=== PATIENT | female | born 1945 | race Caucasian/White ===

== ENCOUNTER 2016-10-09 11:56 | Emergency (ER) | payer MEDICAID, MEDICARE ==
[~2016-10-09 11:56] MED LIST: ASPI81TA85 PO; BENA25CA2 PO; CHLO25TA PO; DOXY150C PO; FLAG500T PO; HYDR-3713 PO; LISI-538 PO; LISI10TA4 PO; LORT5TAB PO; NICO21DI5 TD; NITR4TASL SL; NORCOTAB PO; NORV5TAB PO; TYLE167L PO; ZOLO50TA PO
[2016-10-09] MEDS ORDERED: ASPIRIN 81 MG CHEW TABLET As Ordered ONE (13:15)
[2016-10-09] MEDS ORDERED: ONDANSETRON 4MG/2ML VIAL (J2405) As Ordered ONE (13:23)
[2016-10-09] MEDS ORDERED: MORPHINE 4 MG/ML 1ML SYRINGE As Ordered ONE (13:23)
[2016-10-09 13:25] LABS: BASO % 0.5 % (0.0-1.0); EOS # 0.2 K/mm3 (0.0-0.50); EOS % 2.4 % (0.0-3.0); LARGE UNSTAINED CELL # 0.1 K/mm3 (0.0-0.4); LARGE UNSTAINED CELL % 1.3 % (0.0-4.0); LYMPH # 2.4 K/mm3 (1.5-4.5); LYMPH % 25.6 % (24.0-44.0); MEAN CORPUSCULAR HEMOGLOBIN 31.5 pg (27.0-33.0); MEAN CORPUSCULAR HGB CONC 33.1 g/dl (32.0-36.5); MONO # 0.5 K/mm3 (0.0-0.8); MONO % 5.1 % (0.0-5.0); NEUTROPHILS # 5.9 K/mm3 (1.8-7.7); PLATELET COUNT, AUTOMATED 227 k/mm3 (150-450); RED CELL DISTRIBUTION WIDTH 13.1 % (11.5-14.5)
[2016-10-09 13:43] LABS: INR 1.02
[2016-10-09 13:51] LABS: ANION GAP 4 MEQ/L (8-16); BLOOD UREA NITROGEN 16 MG/DL (7-18); CARBON DIOXIDE LEVEL 27 MEQ/L (21-32); CHLORIDE LEVEL 108 MEQ/L (98-107); CREATININE FOR GFR 0.86 MG/DL (0.55-1.02); GLOMERULAR FILTRATION RATE > 60.0 (>45); GLUCOSE, FASTING 84 MG/DL (80-110); POTASSIUM SERUM 4.3 MEQ/L (3.5-5.1); SODIUM LEVEL 139 MEQ/L (136-145)
--- NOTE | 2016-10-09 13:51 | REP ---
Portable chest a single AP view: Comparison is the PA and lateral chest dated 12/15 2015 There is chronic parenchymal scarring in the costophrenic angles bilaterally. There are no acute infiltrates or effusions. Lung quijano otherwise clear. Cardiac size is upper normal. The klaus, mediastinum, and bony thorax are unremarkable. Impression: There are no acute cardiopulmonary changes. There is chronic scarring in the costophrenic angles bilaterally. Signed by Baltazar Doyle MD 10/09/2016 01:42 P
--- NOTE | 2016-10-09 15:25 | EDDOCDS ---
Physician Documentation [facility] Name: Tish Gold Age: 71 yrs Sex: Female : 1945 Arrival Date: 10/09/2016 Time: 11:56 Bed 12 Private MD: Justo Nieto Disposition: 10/09/16 14:29 Discharged to Home/Self Care. Impression: Chest pain, unspecified. - Condition is Stable. - Discharge Instructions: Nonspecific Chest Pain. - Medication Reconciliation, Local Pharmacy Hours form. - Follow up: Justo Nieto MD; When: Call to arrange an appointment; Reason: Continuance of care. - Problem is new. - Symptoms have improved. Historical: - Allergies: PENICILLINS; Avelox; BUSPIRONE; Clarithromycin; Keflex; Mobic; moxifloxacin; nicardipine; TRIMETHOPRIM; SULFA (SULFONAMIDES); CEPHALOSPORINS; Minocycline; Doxycycline; - Home Meds: 1. aspirin 81 mg Oral tab 1 tab once daily 2. lisinopril 10 mg Oral tab 1 tab once daily 3. hydrocodone-acetaminophen 10-325 mg Oral tab 4. Sertraline 50 mg 5. Nitrostat 0.4 mg SL subl - PMHx: Chronic Back pain; Heart Disease; - PSHx: Appendectomy; Hysterectomy; - Social history: Smoking status: Patient uses tobacco products, current every day smoker. No barriers to communication noted, The patient speaks fluent Irish, Speaks appropriately for age. - Family history: Not pertinent. - : The pt / caregiver states he / she is not on anticoagulants. Home medication list is obtained from the patient. - Exposure Risk Screening:: None identified. Vital Signs: 10/09 11:58 BP 122 / 79; Pulse 65; Resp 18; Temp 96.9(O); Pulse Ox 98% on R/A; Weight 54.43 kg / ct3 120 lbs (R); Height 5 ft. 0 in. (152.40 cm) (R); Pain 9/10; 12:07 BP 132 / 77 (auto/); jc4 12:09 Pulse 58 MON; Pulse Ox 97% ; jc4 14:06 Pain 0/10; ja5 15:05 BP 112 / 76 (auto/); jc4 15:06 Pulse 54 MON; jc4 15:14 BP 112 / 76; Pulse 52; Resp 16; Temp 97.3(O); Pulse Ox 98% on R/A; Pain 0/10; ja5 11:58 Body Mass Index 23.44 (54.43 kg, 152.40 cm) ct3 MDM: 12:04 ECG WITH READING ER PHYS+CARDIAG ordered. EDMS 12:53 Aspirin Chewable Tablet 324 mg PO once ordered. fg 12:53 Master At Arms/Pulse Ox/q 30 min VS ordered. fg 12:53 IV Saline Lock ordered. fg 12:53 Rhythm Strip to chart ordered. fg 12:53 Undress patient appropriately for examination ordered. fg 12:54 B-Type Natiuretic Peptide Ordered. EDMS 12:54 Basic Metabolic Profile Ordered. EDMS 12:54 CBC with Diff Ordered. EDMS 12:54 Cardiac Injury Profile Ordered. EDMS 12:54 Prothrombin Time Profile\E\INR Ordered. EDMS 12:54 Troponin Ordered. EDMS 12:55 portable chest Ordered. EDMS 13:20 morphine 4 mg IVP once ordered. fg 13:22 Ondansetron 4 mg IVP once ordered. fg Administered Medications: 13:18 Drug: Aspirin 324 mg [aspirin 81 mg chewable tablet (4 tabs)] Route: PO; ja5 13:33 Drug: morphine 4 mg [morphine 4 mg/mL intravenous cartridge (1 mL)] Route: IVP; Site: ja5 right antecubital; 14:06 Follow up: Pain 0/10 Adult ja5 13:33 Drug: Ondansetron 4 mg [ondansetron HCl 2 mg/mL intravenous solution (2 mL)] Route: ja5 IVP; Site: right antecubital; Signatures: Dispatcher [employer] EDFrancy Harding,RN RN kr3 Ivelisse Hardwick RN RN jc4 Meseret Abbott MD MD Jessica Chow RN RN deanna5 MTDD
--- NOTE | 2016-10-09 15:25 | EDDOCDS ---
Nurse's Notes [facility] Name: Tish Gold Age: 71 yrs Sex: Female : 1945 Arrival Date: 10/09/2016 Time: 11:56 Bed 12 Private MD: Justo Nieto Diagnosis: Chest pain, unspecified Presentation: 10/09 12:03 Presenting complaint: Patient states: chest pain began last night .reports leaned over kr3 sofa and felt a pop in center of chest. Vicodan is not reliving pain. 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 Adult Sepsis Screening: The patient does not have new or worsening altered mentation. Patient's respiratory rate is less than 22. Systolic blood pressure is greater than 100. Patient has a qSOFA score of 0- Negative Sepsis Screen. Suicide/Homicide risk assessment- the patient denies having any suicidal and/or homicidal ideations and does not present with any other emotional, behavioral or mental health complaints. Status: Patient is not a community service coordinator or dependent. Transition of care: patient was not received from another setting of care. 12:03 Acuity: SHONA Level 3 kr3 12:03 Method Of Arrival: Wheelchair kr3 12:13 Red Flag criteria, patient assessed and taken directly to a bed. kr3 Triage Assessment: 12:12 General: Appears in no apparent distress, comfortable, Behavior is cooperative. Pain: kr3 Location: mid-sternal area. The patient is triaged at the bedside. See Assessment in Nurses Notes section of ED record. Cardiovascular: Chest pain is described as mild, radiates Does not radiate. episodes are continuous began last night. Respiratory: Respiratory effort is even, unlabored. Derm: Skin is normal. Historical: - Allergies: PENICILLINS; Avelox; BUSPIRONE; Clarithromycin; Keflex; Mobic; moxifloxacin; nicardipine; TRIMETHOPRIM; SULFA (SULFONAMIDES); CEPHALOSPORINS; Minocycline; Doxycycline; - Home Meds: 1. aspirin 81 mg Oral tab 1 tab once daily 2. lisinopril 10 mg Oral tab 1 tab once daily 3. hydrocodone-acetaminophen 10-325 mg Oral tab 4. Sertraline 50 mg 5. Nitrostat 0.4 mg SL subl - PMHx: Chronic Back pain; Heart Disease; - PSHx: Appendectomy; Hysterectomy; - Social history: Smoking status: Patient uses tobacco products, current every day smoker. No barriers to communication noted, The patient speaks fluent Mongolian, Speaks appropriately for age. - Family history: Not pertinent. - : The pt / caregiver states he / she is not on anticoagulants. Home medication list is obtained from the patient. - Exposure Risk Screening:: None identified. Screenin:14 Screening information is obtained from the patient. Fall risk: No risks identified. ja5 Assistance ADL's: requires no assistance with activities of daily living. Abuse/DV Screen: The patient / caregiver reports he/she is: not in a situation that causes fear, pain or injury. Nutritional screening: On no prescribed diet. Advance Directives: Currently, there is a health care proxy, Karla Gallegos, daughter. There is an active Power of Park Interpretive Ranger, Karla Gallegos, daughter. home support is adequate. Assessment: 12:11 General: Appears uncomfortable, Behavior is appropriate for age, cooperative. Pain: ja5 Location: chest Pain currently is 9 out of 10 on a pain scale. Neurological: Level of Consciousness is awake, alert, Oriented to person, place, time. Cardiovascular: Capillary refill < 3 seconds Heart tones S1 S2 present Rhythm is sinus rhythm No ectopy. Chest pain began Last night after bending over the couch and hearing a pop. Respiratory: Airway is patent Respiratory effort is even, unlabored, Respiratory pattern is regular, symmetrical, Breath sounds are clear bilaterally. Derm: Skin is pink, warm & dry. 13:20 Reassessment: Patient appears in no apparent distress at this time. jc4 15:15 General: Appears in no apparent distress, Behavior is appropriate for age, cooperative. ja5 Pain: Denies pain. Neurological: Level of Consciousness is awake, alert, Oriented to person, place, time. Cardiovascular: Capillary refill < 3 seconds Rhythm is sinus bradycardia No ectopy. Respiratory: Airway is patent Respiratory effort is even, unlabored, Respiratory pattern is regular, symmetrical. Derm: Skin is pink, warm & dry. 15:15 General: Patient is no longer having pain to her chest and states that she is "feeling ja5 better.". Vital Signs: 11:58 BP 122 / 79; Pulse 65; Resp 18; Temp 96.9(O); Pulse Ox 98% on R/A; Weight 54.43 kg (R); ct3 Height 5 ft. 0 in. (152.40 cm) (R); Pain 9/10; 12:07 BP 132 / 77 (auto/); jc4 12:09 Pulse 58 MON; Pulse Ox 97% ; jc4 14:06 Pain 0/10; ja5 15:05 BP 112 / 76 (auto/); jc4 15:06 Pulse 54 MON; jc4 15:14 BP 112 / 76; Pulse 52; Resp 16; Temp 97.3(O); Pulse Ox 98% on R/A; Pain 0/10; ja5 11:58 Body Mass Index 23.44 (54.43 kg, 152.40 cm) ct3 Vitals: 11:58 Log In Time: October 09, 2016 at 11:57. RN notified that patient meets Red Flag ct3 criteria. ED Course: 11:57 Patient visited by Johanna Wilkins PCA. ct3 11:57 Patient moved to Waiting ct3 11:58 Justo Nieto MD is Private Physician. ct3 12:01 Ivelisse Hardwick RN is Primary Nurse. ct3 12:01 Jessica Chow RN is Primary Nurse. ct3 12:01 Patient moved to 12 ct3 12:05 Triage Initiated kr3 12:20 The patient / caregiver is instructed regarding the plan of care and ED course. ja5 12:20 classroom monitor on. Pulse ox on. NIBP on. ja5 12:53 Meseret Abbott MD is Attending Physician. fg 12:53 Patient visited by Meseret Abbott MD. fg 13:15 B-Type Natiuretic Peptide Sent. jc4 13:15 Basic Metabolic Profile Sent. jc4 13:15 CBC with Diff Sent. jc4 13:15 Cardiac Injury Profile Sent. jc4 13:15 Prothrombin Time Profile\\E\\INR Sent. jc4 13:15 Troponin Sent. jc4 13:16 Inserted saline lock: 20 gauge in right antecubital area The patient tolerated the jc4 procedure well. 13:53 portable chest Returned. EDMS 14:06 Patient visited by Jessica Chow RN. ja5 14:28 Justo Nieto MD is Referral Physician. fg 15:16 Discontinued lock intact, bleeding controlled, pressure dressing applied, No ja5 redness/swelling at site. No procedures done that require assistance. Administered Medications: 13:18 Drug: Aspirin 324 mg [aspirin 81 mg chewable tablet (4 tabs)] Route: PO; [facility] 13:33 Drug: morphine 4 mg [morphine 4 mg/mL intravenous cartridge (1 mL)] Route: IVP; Site: [facility] right antecubital; 14:06 Follow up: Pain 0/10 Adult [facility] 13:33 Drug: Ondansetron 4 mg [ondansetron HCl 2 mg/mL intravenous solution (2 mL)] Route: ja IVP; Site: right antecubital; Order Results: Lab Order: B-Type Natiuretic Peptide; SPEC'M 10/09/16 13:13 Test: BRAIN NATRIURETIC PEPTIDE; Value: 17.8; Range: <100; Units: PG/ML; Status: F Lab Order: Basic Metabolic Profile; SPEC' 10/09/16 13:13 Test: GLUCOSE, FASTING; Value: 84; Range: 80-110; Units: MG/DL; Status: F Test: BLOOD UREA NITROGEN; Value: 16; Range: 7-18; Units: MG/DL; Status: F Test: CREATININE FOR GFR; Value: 0.86; Range: 0.55-1.02; Units: MG/DL; Status: F Test: GLOMERULAR FILTRATION RATE; Value: > 60.0; Range: >45; Status: F Test: SODIUM LEVEL; Value: 139; Range: 136-145; Units: MEQ/L; Status: F Test: POTASSIUM SERUM; Value: 4.3; Range: 3.5-5.1; Units: MEQ/L; Status: F Test: CHLORIDE LEVEL; Value: 108; Range: 98-107; Abnormal: Above high normal; Units: MEQ/L; Status: F Test: CARBON DIOXIDE LEVEL; Value: 27; Range: 21-32; Units: MEQ/L; Status: F Test: ANION GAP; Value: 4; Range: 8-16; Abnormal: Below low normal; Units: MEQ/L; Status: F Test: CALCIUM LEVEL; Value: 9.0; Range: 8.8-10.2; Units: MG/DL; Status: F Test Note: ; Units are mL/min/1.73 m2 Chronic Kidney Disease Staging per NKF: Stage I & II GFR >=60 Normal to Mildly Decreased Stage III GFR 30-59 Moderately Decreased Stage IV GFR 15-29 Severely Decreased Stage V GFR <15 Very Little GFR Left ESRD GFR <15 on DEPUTY CHIEF MAGISTRATE Lab Order: CBC with Diff; SPEC'M 10/09/16 13:13 Test: WHITE BLOOD COUNT; Value: 9.0; Range: 4.0-10.0; Units: K/mm3; Status: F Test: RED BLOOD COUNT; Value: 4.66; Range: 4.00-5.40; Units: M/mm3; Status: F Test: HEMOGLOBIN; Value: 14.7; Range: 12.0-16.0; Units: g/dl; Status: F Test: HEMATOCRIT; Value: 44.2; Range: 36.0-47.0; Units: %; Status: F Test: MEAN CORPUSCULAR VOLUME; Value: 95.0; Range: 80.0-96.0; Units: fl; Status: F Test: MEAN CORPUSCULAR HEMOGLOBIN; Value: 31.5; Range: 27.0-33.0; Units: pg; Status: F Test: MEAN CORPUSCULAR HGB CONC; Value: 33.1; Range: 32.0-36.5; Units: g/dl; Status: F Test: RED CELL DISTRIBUTION WIDTH; Value: 13.1; Range: 11.5-14.5; Units: %; Status: F Test: PLATELET COUNT, AUTOMATED; Value: 227; Range: 150-450; Units: k/mm3; Status: F Test: NEUTROPHILS %; Value: 65.0; Range: 36.0-66.0; Units: %; Status: F Test: LYMPH %; Value: 25.6; Range: 24.0-44.0; Units: %; Status: F Test: MONO %; Value: 5.1; Range: 0.0-5.0; Abnormal: Above high normal; Units: %; Status: F Test: EOS %; Value: 2.4; Range: 0.0-3.0; Units: %; Status: F Test: BASO %; Value: 0.5; Range: 0.0-1.0; Units: %; Status: F Test: LARGE UNSTAINED CELL %; Value: 1.3; Range: 0.0-4.0; Units: %; Status: F Test: NEUTROPHILS #; Value: 5.9; Range: 1.8-7.7; Units: K/mm3; Status: F Test: LYMPH #; Value: 2.4; Range: 1.5-4.5; Units: K/mm3; Status: F Test: MONO #; Value: 0.5; Range: 0.0-0.8; Units: K/mm3; Status: F Test: EOS #; Value: 0.2; Range: 0.0-0.50; Units: K/mm3; Status: F Test: BASO #; Value: 0.0; Range: 0.0-0.2; Units: K/mm3; Status: F Test: LARGE UNSTAINED CELL #; Value: 0.1; Range: 0.0-0.4; Units: K/mm3; Status: F Lab Order: Cardiac Injury Profile; [facility] 10/09/16 13:13 Test: CPK CREATINE PHOSPHOKINASE; Value: 75; Range: 26-192; Units: U/L; Status: F Test: CK-MB VALUE MASS; Value: 1.0; Range: 0.0-3.6; Units: NG/ML; Status: F Test: MB/CK RELATIVE INDEX; Value: 1.33; Range: < OR =4; Status: F Test Note: ; DIAGNOSIS CRITERIA MMB ng/ml Relative Index (RI) NON-AMI < or = 5 N/A GAYTAN ZONE > 5 < or = 4 AMI > 5 > 4 Lab Order: Prothrombin Time Profile\\E\\INR; [facility] 10/09/16 13:13 Test: PROTHROMBIN TIME; Value: 13.5; Range: 12.3-14.5; Units: SECONDS; Status: F Test: INR; Value: 1.02; Status: F Test Note: ; THERAPUTIC HUMAN INR VALUES INDICATIONS NORMAL RANGES PROPHYLAXIS/TREATMENT OF: VENOUS THROMBOSIS 2.0-3.0 PULMONARY EMBOLISM 2.0-3.0 PREVENTION OF SYSTEMIC EMBOLISM FROM: TISSUE HEART VALVES 2.0-3.0 ACUTE MYOCARDIAL INFARCTION 2.0-3.0 VALVULAR HEART DISEASE 2.0-3.0 ATRIAL FIBRILLATION 2.0-3.0 MECHANICAL VALVES(HIGH RISK) 2.5-3.5 RECURRENT MYOCARDIAL INFARCTION 2.5-3.5 Lab Order: Troponin; [facility] 10/09/16 13:13 Test: TROPONIN I; Value: < 0.02; Range: < 0.10; Units: NG/ML; Status: F Test Note: ; Troponin I Reference Interval for Siemens [employer] LOCI: 99th Percentile= 0.00-0.045 ng/ml Risk Stratification: <= 0.10 ng/ml Decreased Risk for Adverse Clinical Events. 0.10-1.50 ng/ml Increased Risk for Adverse Clinical Events. Evaluation of additional criterion and/or repeat testing in 2-6 hours is suggested to rule out myocardial damage. >= 1.50 ng/ml Indicative of Myocardial Injury. Radiology Order: portable chest Test: portable chest REASON FOR EXAMINATION: Chest Pain; Portable chest a single AP view:; ; Comparison is the PA and lateral chest dated 12/15 2015; ; There is chronic parenchymal scarring in the costophrenic angles bilaterally.; ; There are no acute infiltrates or effusions. Lung quijano otherwise clear.; ; Cardiac size is upper normal. The klaus, mediastinum, and bony thorax are; unremarkable.; ; Impression:; ; There are no acute cardiopulmonary changes. There is chronic scarring in the; costophrenic angles bilaterally.; ; ; Signed by; Baltazar Doyle MD 10/09/2016 01:42 P; Outcome: 14:29 Discharge ordered by Provider. fg 15:17 Discharge Assessment: Patient awake and alert. Oriented to person, place and time. ja5 patient administered narcotics - yes. Pt provided with safe discharge. The following High Risk Discharge criteria are identified: None. Discharged to home ambulatory, with significant other. Condition: stable. Discharge instructions given to patient, Instructed on discharge instructions, follow up and referral plans. Demonstrated understanding of instructions, Patient understands that she shouldn't drive home after receiving IV narcotics. She states that her will be driving her home. No special radiology studies were completed. Property :Personal belongings accompany Pt. 15:24 Patient left the ED. jc4 Signatures: Dispatcher [employer] EDFrancy Harding,RN RN kr3 Ivelisse Hardwick RN RN jc4 Johanna Wilkins, CRANE HELPER CRANE HELPER ct3 Meseret Abbott MD MD fg Anderson, Jessica, RN RN ja5 MTDD
--- NOTE | 2016-10-10 08:30 | ECGEPIP ---
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
--- NOTE | 2016-10-11 16:25 | EDDOCDS ---
Physician Documentation [facility] Name: Tish Gold Age: 71 yrs Sex: Female : 1945 Arrival Date: 10/09/2016 Time: 11:56 Bed 12 Private MD: Justo Nieto Disposition: 10/09/16 14:29 Discharged to Home/Self Care. Impression: Chest pain, unspecified. - Condition is Stable. - Discharge Instructions: Nonspecific Chest Pain. - Medication Reconciliation, Local Pharmacy Hours form. - Follow up: Justo Nieto MD; When: Call to arrange an appointment; Reason: Continuance of care. - Problem is new. - Symptoms have improved. Historical: - Allergies: PENICILLINS; Avelox; BUSPIRONE; Clarithromycin; Keflex; Mobic; moxifloxacin; nicardipine; TRIMETHOPRIM; SULFA (SULFONAMIDES); CEPHALOSPORINS; Minocycline; Doxycycline; - Home Meds: 1. aspirin 81 mg Oral tab 1 tab once daily 2. lisinopril 10 mg Oral tab 1 tab once daily 3. hydrocodone-acetaminophen 10-325 mg Oral tab 4. Sertraline 50 mg 5. Nitrostat 0.4 mg SL subl - PMHx: Chronic Back pain; Heart Disease; - PSHx: Appendectomy; Hysterectomy; - Social history: Smoking status: Patient uses tobacco products, current every day smoker. No barriers to communication noted, The patient speaks fluent Belarusian, Speaks appropriately for age. - Family history: Not pertinent. - : The pt / caregiver states he / she is not on anticoagulants. Home medication list is obtained from the patient. - Exposure Risk Screening:: None identified. Vital Signs: 10/09 11:58 BP 122 / 79; Pulse 65; Resp 18; Temp 96.9(O); Pulse Ox 98% on R/A; Weight 54.43 kg / ct3 120 lbs (R); Height 5 ft. 0 in. (152.40 cm) (R); Pain 9/10; 12:07 BP 132 / 77 (auto/); jc4 12:09 Pulse 58 MON; Pulse Ox 97% ; jc4 14:06 Pain 0/10; ja5 15:05 BP 112 / 76 (auto/); jc4 15:06 Pulse 54 MON; jc4 15:14 BP 112 / 76; Pulse 52; Resp 16; Temp 97.3(O); Pulse Ox 98% on R/A; Pain 0/10; ja5 11:58 Body Mass Index 23.44 (54.43 kg, 152.40 cm) ct3 MDM: 12:04 ECG WITH READING ER PHYS+CARDIAG ordered. EDMS 12:53 Aspirin Chewable Tablet 324 mg PO once ordered. fg 12:53 Utility Tractor Operator/Pulse Ox/q 30 min VS ordered. fg 12:53 IV Saline Lock ordered. fg 12:53 Rhythm Strip to chart ordered. fg 12:53 Undress patient appropriately for examination ordered. fg 12:54 B-Type Natiuretic Peptide Ordered. EDMS 12:54 Basic Metabolic Profile Ordered. EDMS 12:54 CBC with Diff Ordered. EDMS 12:54 Cardiac Injury Profile Ordered. EDMS 12:54 Prothrombin Time Profile\E\INR Ordered. EDMS 12:54 Troponin Ordered. EDMS 12:55 portable chest Ordered. EDMS 13:20 morphine 4 mg IVP once ordered. fg 13:22 Ondansetron 4 mg IVP once ordered. 15:49 [facility] Payment Agreement was scanned into [employer] and attached to record. [facility] 15:49 Financial registration complete. [facility] 10/10 09:31 T-Sheet-- Draft Copy was scanned into [employer] and attached to record. 09:32 ECG/EKG was scanned into [employer] and attached to record. gb 09:32 Trend VS was scanned into [employer] and attached to record. gb Administered Medications: 10/09 13:18 Drug: Aspirin 324 mg [aspirin 81 mg chewable tablet (4 tabs)] Route: PO; ja5 13:33 Drug: morphine 4 mg [morphine 4 mg/mL intravenous cartridge (1 mL)] Route: IVP; Site: ja5 right antecubital; 14:06 Follow up: Pain 0/10 Adult ja5 13:33 Drug: Ondansetron 4 mg [ondansetron HCl 2 mg/mL intravenous solution (2 mL)] Route: ja5 IVP; Site: right antecubital; Signatures: Dispatcher [employer] EDMS Tish Maynard, Esteban Reg Francy Morgan,RN RN kr3 Ivelisse Hardwick RN RN jc4 Abbott, MD MD aimee Carl Gabriela gjb Anderson, JessicaRN RN ja5 The chart was reviewed and I authenticate all verbal orders and agree with the evaluation and treatment provided.Attachments: 15:49 [facility] Payment Agreement gjb 10/10 09:31 T-Sheet-- Draft Copy gb 09:32 ECG/EKG gb Chart Complete MTDD
--- NOTE | 2016-10-11 16:25 | EDDOCDS ---
Nurse's Notes [facility] Name: Tish Gold Age: 71 yrs Sex: Female : 1945 Arrival Date: 10/09/2016 Time: 11:56 Bed 12 Private MD: Justo Nieto Diagnosis: Chest pain, unspecified Presentation: 10/09 12:03 Presenting complaint: Patient states: chest pain began last night .reports leaned over kr3 sofa and felt a pop in center of chest. Vicodan is not reliving pain. 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 Adult Sepsis Screening: The patient does not have new or worsening altered mentation. Patient's respiratory rate is less than 22. Systolic blood pressure is greater than 100. Patient has a qSOFA score of 0- Negative Sepsis Screen. Suicide/Homicide risk assessment- the patient denies having any suicidal and/or homicidal ideations and does not present with any other emotional, behavioral or mental health complaints. 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 Transition of care: patient was not received from another setting of care. 12:03 Acuity: SHONA Level 3 kr3 12:03 Method Of Arrival: Wheelchair kr3 12:13 Red Flag criteria, patient assessed and taken directly to a bed. kr3 Triage Assessment: 12:12 General: Appears in no apparent distress, comfortable, Behavior is cooperative. Pain: kr3 Location: mid-sternal area. The patient is triaged at the bedside. See Assessment in Nurses Notes section of ED record. Cardiovascular: Chest pain is described as mild, radiates Does not radiate. episodes are continuous began last night. Respiratory: Respiratory effort is even, unlabored. Derm: Skin is normal. Historical: - Allergies: PENICILLINS; Avelox; BUSPIRONE; Clarithromycin; Keflex; Mobic; moxifloxacin; nicardipine; TRIMETHOPRIM; SULFA (SULFONAMIDES); CEPHALOSPORINS; Minocycline; Doxycycline; - Home Meds: 1. aspirin 81 mg Oral tab 1 tab once daily 2. lisinopril 10 mg Oral tab 1 tab once daily 3. hydrocodone-acetaminophen 10-325 mg Oral tab 4. Sertraline 50 mg 5. Nitrostat 0.4 mg SL subl - PMHx: Chronic Back pain; Heart Disease; - PSHx: Appendectomy; Hysterectomy; - Social history: Smoking status: Patient uses tobacco products, current every day smoker. No barriers to communication noted, The patient speaks fluent Italian, Speaks appropriately for age. - Family history: Not pertinent. - : The pt / caregiver states he / she is not on anticoagulants. Home medication list is obtained from the patient. - Exposure Risk Screening:: None identified. Screenin:14 Screening information is obtained from the patient. Fall risk: No risks identified. ja5 Assistance ADL's: requires no assistance with activities of daily living. Abuse/DV Screen: The patient / caregiver reports he/she is: not in a situation that causes fear, pain or injury. Nutritional screening: On no prescribed diet. Advance Directives: Currently, there is a health care proxy, Karla Gallegos, daughter. There is an active Power of Call Center Recruiter, Karla Gallegos, daughter. home support is adequate. Assessment: 12:11 General: Appears uncomfortable, Behavior is appropriate for age, cooperative. Pain: ja5 Location: chest Pain currently is 9 out of 10 on a pain scale. Neurological: Level of Consciousness is awake, alert, Oriented to person, place, time. Cardiovascular: Capillary refill < 3 seconds Heart tones S1 S2 present Rhythm is sinus rhythm No ectopy. Chest pain began Last night after bending over the couch and hearing a pop. Respiratory: Airway is patent Respiratory effort is even, unlabored, Respiratory pattern is regular, symmetrical, Breath sounds are clear bilaterally. Derm: Skin is pink, warm & dry. 13:20 Reassessment: Patient appears in no apparent distress at this time. jc4 15:15 General: Appears in no apparent distress, Behavior is appropriate for age, cooperative. ja5 Pain: Denies pain. Neurological: Level of Consciousness is awake, alert, Oriented to person, place, time. Cardiovascular: Capillary refill < 3 seconds Rhythm is sinus bradycardia No ectopy. Respiratory: Airway is patent Respiratory effort is even, unlabored, Respiratory pattern is regular, symmetrical. Derm: Skin is pink, warm & dry. 15:15 General: Patient is no longer having pain to her chest and states that she is "feeling ja5 better.". Vital Signs: 11:58 BP 122 / 79; Pulse 65; Resp 18; Temp 96.9(O); Pulse Ox 98% on R/A; Weight 54.43 kg (R); ct3 Height 5 ft. 0 in. (152.40 cm) (R); Pain 9/10; 12:07 BP 132 / 77 (auto/); jc4 12:09 Pulse 58 MON; Pulse Ox 97% ; jc4 14:06 Pain 0/10; ja5 15:05 BP 112 / 76 (auto/); jc4 15:06 Pulse 54 MON; jc4 15:14 BP 112 / 76; Pulse 52; Resp 16; Temp 97.3(O); Pulse Ox 98% on R/A; Pain 0/10; ja5 11:58 Body Mass Index 23.44 (54.43 kg, 152.40 cm) ct3 Vitals: 11:58 Log In Time: October 09, 2016 at 11:57. RN notified that patient meets Red Flag ct3 criteria. ED Course: 11:57 Patient visited by Johanna Wilkins PCA. ct3 11:57 Patient moved to Waiting ct3 11:58 Justo Nieto MD is Private Physician. ct3 12:01 Ivelisse Hardwick RN is Primary Nurse. ct3 12:01 Jessica Chow RN is Primary Nurse. ct3 12:01 Patient moved to 12 ct3 12:05 Triage Initiated kr3 12:20 The patient / caregiver is instructed regarding the plan of care and ED course. ja5 12:20 rough rib grader on. Pulse ox on. NIBP on. ja5 12:53 Meseret Abbott MD is Attending Physician. fg 12:53 Patient visited by Meseret Abbott MD. fg 13:15 B-Type Natiuretic Peptide Sent. jc4 13:15 Basic Metabolic Profile Sent. jc4 13:15 CBC with Diff Sent. jc4 13:15 Cardiac Injury Profile Sent. jc4 13:15 Prothrombin Time Profile\\E\\INR Sent. jc4 13:15 Troponin Sent. jc4 13:16 Inserted saline lock: 20 gauge in right antecubital area The patient tolerated the jc4 procedure well. 13:53 portable chest Returned. EDMS 14:06 Patient visited by Jessica Chow RN. ja5 14:28 Justo Nieto MD is Referral Physician. fg 15:16 Discontinued lock intact, bleeding controlled, pressure dressing applied, No ja5 redness/swelling at site. No procedures done that require assistance. 15:49 [facility] [place] [facility] Payment Agreement was scanned into [employer] and attached to record. gjb 10/10 08:51 EKG-ADULT Returned. EDMS 09:31 T-Sheet-- Draft Copy was scanned into [employer] and attached to record. 09:32 ECG/EKG was scanned into [employer] and attached to record. 09:32 Trend VS was scanned into [employer] and attached to record. gb Administered Medications: 10/09 13:18 Drug: Aspirin 324 mg [aspirin 81 mg chewable tablet (4 tabs)] Route: PO; [facility] 13:33 Drug: morphine 4 mg [morphine 4 mg/mL intravenous cartridge (1 mL)] Route: IVP; Site: ja5 right antecubital; 14:06 Follow up: Pain 0/10 Adult [facility] 13:33 Drug: Ondansetron 4 mg [ondansetron HCl 2 mg/mL intravenous solution (2 mL)] Route: ja5 IVP; Site: right antecubital; Attachments: 09:32 Trend VS Order Results: Lab Order: B-Type Natiuretic Peptide; SPEC'M 10/09/16 13:13 Test: BRAIN NATRIURETIC PEPTIDE; Value: 17.8; Range: <100; Units: PG/ML; Status: F Lab Order: Basic Metabolic Profile; SPEC'M 10/09/16 13:13 Test: GLUCOSE, FASTING; Value: 84; Range: 80-110; Units: MG/DL; Status: F Test: BLOOD UREA NITROGEN; Value: 16; Range: 7-18; Units: MG/DL; Status: F Test: CREATININE FOR GFR; Value: 0.86; Range: 0.55-1.02; Units: MG/DL; Status: F Test: GLOMERULAR FILTRATION RATE; Value: > 60.0; Range: >45; Status: F Test: SODIUM LEVEL; Value: 139; Range: 136-145; Units: MEQ/L; Status: F Test: POTASSIUM SERUM; Value: 4.3; Range: 3.5-5.1; Units: MEQ/L; Status: F Test: CHLORIDE LEVEL; Value: 108; Range: 98-107; Abnormal: Above high normal; Units: MEQ/L; Status: F Test: CARBON DIOXIDE LEVEL; Value: 27; Range: 21-32; Units: MEQ/L; Status: F Test: ANION GAP; Value: 4; Range: 8-16; Abnormal: Below low normal; Units: MEQ/L; Status: F Test: CALCIUM LEVEL; Value: 9.0; Range: 8.8-10.2; Units: MG/DL; Status: F Test Note: ; Units are mL/min/1.73 m2 Chronic Kidney Disease Staging per NKF: Stage I & II GFR >=60 Normal to Mildly Decreased Stage III GFR 30-59 Moderately Decreased Stage IV GFR 15-29 Severely Decreased Stage V GFR <15 Very Little GFR Left ESRD GFR <15 on SHIP CLEANER Lab Order: CBC with Diff; SPEC'M 10/09/16 13:13 Test: WHITE BLOOD COUNT; Value: 9.0; Range: 4.0-10.0; Units: K/mm3; Status: F Test: RED BLOOD COUNT; Value: 4.66; Range: 4.00-5.40; Units: M/mm3; Status: F Test: HEMOGLOBIN; Value: 14.7; Range: 12.0-16.0; Units: g/dl; Status: F Test: HEMATOCRIT; Value: 44.2; Range: 36.0-47.0; Units: %; Status: F Test: MEAN CORPUSCULAR VOLUME; Value: 95.0; Range: 80.0-96.0; Units: fl; Status: F Test: MEAN CORPUSCULAR HEMOGLOBIN; Value: 31.5; Range: 27.0-33.0; Units: pg; Status: F Test: MEAN CORPUSCULAR HGB CONC; Value: 33.1; Range: 32.0-36.5; Units: g/dl; Status: F Test: RED CELL DISTRIBUTION WIDTH; Value: 13.1; Range: 11.5-14.5; Units: %; Status: F Test: PLATELET COUNT, AUTOMATED; Value: 227; Range: 150-450; Units: k/mm3; Status: F Test: NEUTROPHILS %; Value: 65.0; Range: 36.0-66.0; Units: %; Status: F Test: LYMPH %; Value: 25.6; Range: 24.0-44.0; Units: %; Status: F Test: MONO %; Value: 5.1; Range: 0.0-5.0; Abnormal: Above high normal; Units: %; Status: F Test: EOS %; Value: 2.4; Range: 0.0-3.0; Units: %; Status: F Test: BASO %; Value: 0.5; Range: 0.0-1.0; Units: %; Status: F Test: LARGE UNSTAINED CELL %; Value: 1.3; Range: 0.0-4.0; Units: %; Status: F Test: NEUTROPHILS #; Value: 5.9; Range: 1.8-7.7; Units: K/mm3; Status: F Test: LYMPH #; Value: 2.4; Range: 1.5-4.5; Units: K/mm3; Status: F Test: MONO #; Value: 0.5; Range: 0.0-0.8; Units: K/mm3; Status: F Test: EOS #; Value: 0.2; Range: 0.0-0.50; Units: K/mm3; Status: F Test: BASO #; Value: 0.0; Range: 0.0-0.2; Units: K/mm3; Status: F Test: LARGE UNSTAINED CELL #; Value: 0.1; Range: 0.0-0.4; Units: K/mm3; Status: F Lab Order: Cardiac Injury Profile; SPEC' 10/09/16 13:13 Test: CPK CREATINE PHOSPHOKINASE; Value: 75; Range: 26-192; Units: U/L; Status: F Test: CK-MB VALUE MASS; Value: 1.0; Range: 0.0-3.6; Units: NG/ML; Status: F Test: MB/CK RELATIVE INDEX; Value: 1.33; Range: < OR =4; Status: F Test Note: ; DIAGNOSIS CRITERIA MMB ng/ml Relative Index (RI) NON-AMI < or = 5 N/A GAYTAN ZONE > 5 < or = 4 AMI > 5 > 4 Lab Order: Prothrombin Time Profile\\E\\INR; SPEC' 10/09/16 13:13 Test: PROTHROMBIN TIME; Value: 13.5; Range: 12.3-14.5; Units: SECONDS; Status: F Test: INR; Value: 1.02; Status: F Test Note: ; THERAPUTIC HUMAN INR VALUES INDICATIONS NORMAL RANGES PROPHYLAXIS/TREATMENT OF: VENOUS THROMBOSIS 2.0-3.0 PULMONARY EMBOLISM 2.0-3.0 PREVENTION OF SYSTEMIC EMBOLISM FROM: TISSUE HEART VALVES 2.0-3.0 ACUTE MYOCARDIAL INFARCTION 2.0-3.0 VALVULAR HEART DISEASE 2.0-3.0 ATRIAL FIBRILLATION 2.0-3.0 MECHANICAL VALVES(HIGH RISK) 2.5-3.5 RECURRENT MYOCARDIAL INFARCTION 2.5-3.5 Lab Order: Troponin; SPEC'M 10/09/16 13:13 Test: TROPONIN I; Value: < 0.02; Range: < 0.10; Units: NG/ML; Status: F Test Note: ; Troponin I Reference Interval for Siem[employer] [place] LOCI: 99th Percentile= 0.00-0.045 ng/ml Risk Stratification: <= 0.10 ng/ml Decreased Risk for Adverse Clinical Events. 0.10-1.50 ng/ml Increased Risk for Adverse Clinical Events. Evaluation of additional criterion and/or repeat testing in 2-6 hours is suggested to rule out myocardial damage. >= 1.50 ng/ml Indicative of Myocardial Injury. 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; : 1945 Requested By: Praful Godfrey; Order Number: [id number] Reading MD: Praful Fragoso; Measurements; Intervals [place]; Rate: 50 P: 70; LA: 135 QRS: 61; QRSD: 90 T: 37; QT: 446; QTc: 409; Interpretive Statements; SINUS BRADYCARDIA; POSSIBLE LAE; MODERATE ST DEPRESSION; SIMILAR TO 01/05/15; Electronically Signed On 10-10-2016 8:30:52 EST by Praful Fragoso; Radiology Order: portable chest Test: portable chest REASON FOR EXAMINATION: Chest Pain; Portable chest a single AP view:; ; Comparison is the PA and lateral chest dated 12/15 2015; ; There is chronic parenchymal scarring in the costophrenic angles bilaterally.; ; There are no acute infiltrates or effusions. Lung quijano otherwise clear.; ; Cardiac size is upper normal. The klaus, mediastinum, and bony thorax are; unremarkable.; ; Impression:; ; There are no acute cardiopulmonary changes. There is chronic scarring in the; costophrenic angles bilaterally.; ; ; Signed by; Baltazar Doyle MD 10/09/2016 01:42 P; Outcome: 10/09 14:29 Discharge ordered by Provider. fg 15:17 Discharge Assessment: Patient awake and alert. Oriented to person, place and time. ja5 patient administered narcotics - yes. Pt provided with safe discharge. The following High Risk Discharge criteria are identified: None. Discharged to home ambulatory, with significant other. Condition: stable. Discharge instructions given to patient, Instructed on discharge instructions, follow up and referral plans. Demonstrated understanding of instructions, Patient understands that she shouldn't drive home after receiving IV narcotics. She states that her will be driving her home. No special radiology studies were completed. Property :Personal belongings accompany Pt. 15:24 Patient left the ED. jc4 Signatures: Dispatcher [employer] EDMS Tish Maynard, Reg Reg gb Francy Lopez,RN RN kr3 Ivelisse Hardwick, RN RN jc4 Johanna Wilkins, SPINNING MACHINE TENDER SPINNING MACHINE TENDER ct3 Meseret Abbott MD MD fg Beck, Gabriela gjb Anderson, Jessica,RN RN ja5 Chart Complete MTDD
--- NOTE | 2016-10-11 16:25 | EDDOCDS ---
Physician Documentation [facility] Name: Tish Gold Age: 71 yrs Sex: Female : 1945 Arrival Date: 10/09/2016 Time: 11:56 Bed 12 Private MD: Justo Nieto Disposition: 10/09/16 14:29 Discharged to Home/Self Care. Impression: Chest pain, unspecified. - Condition is Stable. - Discharge Instructions: Nonspecific Chest Pain. - Medication Reconciliation, Local Pharmacy Hours form. - Follow up: Justo Nieto MD; When: Call to arrange an appointment; Reason: Continuance of care. - Problem is new. - Symptoms have improved. Historical: - Allergies: PENICILLINS; Avelox; BUSPIRONE; Clarithromycin; Keflex; Mobic; moxifloxacin; nicardipine; TRIMETHOPRIM; SULFA (SULFONAMIDES); CEPHALOSPORINS; Minocycline; Doxycycline; - Home Meds: 1. aspirin 81 mg Oral tab 1 tab once daily 2. lisinopril 10 mg Oral tab 1 tab once daily 3. hydrocodone-acetaminophen 10-325 mg Oral tab 4. Sertraline 50 mg 5. Nitrostat 0.4 mg SL subl - PMHx: Chronic Back pain; Heart Disease; - PSHx: Appendectomy; Hysterectomy; - Social history: Smoking status: Patient uses tobacco products, current every day smoker. No barriers to communication noted, The patient speaks fluent Turkish, Speaks appropriately for age. - Family history: Not pertinent. - : The pt / caregiver states he / she is not on anticoagulants. Home medication list is obtained from the patient. - Exposure Risk Screening:: None identified. Vital Signs: 10/09 11:58 BP 122 / 79; Pulse 65; Resp 18; Temp 96.9(O); Pulse Ox 98% on R/A; Weight 54.43 kg / ct3 120 lbs (R); Height 5 ft. 0 in. (152.40 cm) (R); Pain 9/10; 12:07 BP 132 / 77 (auto/); jc4 12:09 Pulse 58 MON; Pulse Ox 97% ; jc4 14:06 Pain 0/10; ja5 15:05 BP 112 / 76 (auto/); jc4 15:06 Pulse 54 MON; jc4 15:14 BP 112 / 76; Pulse 52; Resp 16; Temp 97.3(O); Pulse Ox 98% on R/A; Pain 0/10; ja5 11:58 Body Mass Index 23.44 (54.43 kg, 152.40 cm) ct3 MDM: 12:04 ECG WITH READING ER PHYS+CARDIAG ordered. EDMS 12:53 Aspirin Chewable Tablet 324 mg PO once ordered. fg 12:53 Provider Relations Consultant/Pulse Ox/q 30 min VS ordered. fg 12:53 IV Saline Lock ordered. fg 12:53 Rhythm Strip to chart ordered. fg 12:53 Undress patient appropriately for examination ordered. fg 12:54 B-Type Natiuretic Peptide Ordered. EDMS 12:54 Basic Metabolic Profile Ordered. EDMS 12:54 CBC with Diff Ordered. EDMS 12:54 Cardiac Injury Profile Ordered. EDMS 12:54 Prothrombin Time Profile\E\INR Ordered. EDMS 12:54 Troponin Ordered. EDMS 12:55 portable chest Ordered. EDMS 13:20 morphine 4 mg IVP once ordered. fg 13:22 Ondansetron 4 mg IVP once ordered. 15:49 [facility] Payment Agreement was scanned into [employer] and attached to record. [facility] 15:49 Financial registration complete. [facility] 10/10 09:31 T-Sheet-- Draft Copy was scanned into [employer] and attached to record. 09:32 ECG/EKG was scanned into [employer] and attached to record. gb 09:32 Trend VS was scanned into [employer] and attached to record. gb Administered Medications: 10/09 13:18 Drug: Aspirin 324 mg [aspirin 81 mg chewable tablet (4 tabs)] Route: PO; ja5 13:33 Drug: morphine 4 mg [morphine 4 mg/mL intravenous cartridge (1 mL)] Route: IVP; Site: ja5 right antecubital; 14:06 Follow up: Pain 0/10 Adult ja5 13:33 Drug: Ondansetron 4 mg [ondansetron HCl 2 mg/mL intravenous solution (2 mL)] Route: ja5 IVP; Site: right antecubital; Signatures: Dispatcher [employer] EDMS Tish Maynard, Esteban Reg Francy Morgan,RN RN kr3 Ivelisse Hardwick RN RN jc4 Abbott, MD MD aimee Carl Gabriela gjb Anderson, JessicaRN RN ja5 The chart was reviewed and I authenticate all verbal orders and agree with the evaluation and treatment provided.Attachments: 15:49 [facility] Payment Agreement gjb 10/10 09:31 T-Sheet-- Draft Copy gb 09:32 ECG/EKG gb Chart Complete MTDD
== END 2016-10-09 15:24 | disposition home or self-care (01) ==
LOC: M ED 11:56
DX: R07.9 Chest pain, unspecified (principal); R06.02 Shortness of breath; I10 Essential (primary) hypertension; J44.9 Chronic obstructive pulmonary disease, unspecified; M54.9 Dorsalgia, unspecified; Z87.891 Personal history of nicotine dependence; Z79.899 Other long term (current) drug therapy; Z79.82 Long term (current) use of aspirin; Z88.0 Allergy status to penicillin; Z88.8 Allergy status to other drugs, medicaments and biological substances; Z88.1 Allergy status to other antibiotic agents; Z88.2 Allergy status to sulfonamides
CPT/HCPCS: 71010; 80048; 82550; 82553; 83880; 84484; 85025; 85610; 93005; 93041; 96374; 96375; 99284; J2405

== ENCOUNTER → 2016-10-23 | Outpatient (REF) | payer MEDICARE ==
[2016-10-23 16:26] LABS: BASO % 0.4 % (0.0-1.0); EOS # 0.3 K/mm3 (0.0-0.50); EOS % 3.5 % (0.0-3.0); LARGE UNSTAINED CELL # 0.2 K/mm3 (0.0-0.4); LARGE UNSTAINED CELL % 1.9 % (0.0-4.0); LYMPH # 2.5 K/mm3 (1.5-4.5); LYMPH % 28.9 % (24.0-44.0); MEAN CORPUSCULAR HEMOGLOBIN 32.1 pg (27.0-33.0); MEAN CORPUSCULAR HGB CONC 33.4 g/dl (32.0-36.5); MEAN CORPUSCULAR VOLUME 96.1 fl (80.0-96.0); MONO # 0.4 K/mm3 (0.0-0.8); MONO % 4.7 % (0.0-5.0); NEUTROPHILS # 4.9 K/mm3 (1.8-7.7); NEUTROPHILS % 60.6 % (36.0-66.0); PLATELET COUNT, AUTOMATED 211 k/mm3 (150-450); RED CELL DISTRIBUTION WIDTH 13.2 % (11.5-14.5); WHITE BLOOD COUNT 8.1 K/mm3 (4.0-10.0)
[2016-10-23 16:49] LABS: ALBUMIN 3.7 GM/DL (3.2-5.2); ALBUMIN/GLOBULIN RATIO 1.32 (1.00-1.93); ALKALINE PHOSPHATASE 112 U/L (45-117); ALT/SGPT 17 U/L (12-78); ANION GAP 6 MEQ/L (8-16); AST/SGOT 18 U/L (15-37); BILIRUBIN,TOTAL 0.2 MG/DL (0.2-1.0); BLOOD UREA NITROGEN 15 MG/DL (7-18); CALCIUM LEVEL 8.4 MG/DL (8.8-10.2); CARBON DIOXIDE LEVEL 28 MEQ/L (21-32); CHLORIDE LEVEL 106 MEQ/L (98-107); CREATININE FOR GFR 0.91 MG/DL (0.55-1.02); GLOMERULAR FILTRATION RATE > 60.0 (>45); GLUCOSE, FASTING 86 MG/DL (80-110); POTASSIUM SERUM 4.5 MEQ/L (3.5-5.1); SODIUM LEVEL 140 MEQ/L (136-145); TOTAL PROTEIN 6.5 GM/DL (6.4-8.2)
== END ==
LOC: M SFHCPLAZ 12:16
PROVIDERS: ATTEND Nurse Practitioner Family
DX: R51 Headache (principal); T59.91XA Toxic effect of unspecified gases, fumes and vapors, accidental (unintentional), initial encounter; Z79.899 Other long term (current) drug therapy
CPT/HCPCS: 36415; 80053; 82375; 84443; 85025; G0463

== ENCOUNTER → 2016-11-14 | Outpatient (CLI) | payer MEDICARE ==
--- NOTE | 2016-11-14 15:01 | REP ---
CHEST, TWO VIEWS: HISTORY: Chest pain. COMPARISON: 10/09/2016 The lungs are hyperinflated. The linear densities are present in the lower lobes consistent with scarring. The heart is upper limits of normal in size. The pulmonary vasculature is normal in appearance. The bony structure is intact. IMPRESSION: Bibasilar scarring. Signed by Simon Johnson MD 11/14/2016 03:02 P
== END ==
LOC: M RAD 14:35
PROVIDERS: ATTEND Physician Assistant Medical
DX: R91.8 Other nonspecific abnormal finding of lung field (principal)

== ENCOUNTER 2016-11-30 09:57 | Emergency (ER) | payer MEDICARE ==
[~2016-11-30] VITALS: Ht 152.4 cm; Wt 56.2 kg
[2016-11-30] MEDS ORDERED: LISI10TA4 PO (10:24)
[2016-11-30] MEDS ORDERED: MORPHINE 2 MG/ML 1ML SYRINGE IM ONE (11:00)
--- NOTE | 2016-11-30 11:22 | REP ---
Chest two views HISTORY: Rib pain Comparison: 11/14/2016 The lungs are hyperinflated. Linear densities are present in the lower lobes consistent with scar. The heart is upper limits of normal in size. The pulmonary vasculature is normal in appearance. The bony structure is intact. IMPRESSION: Bibasilar scarring. Signed by Simon Johnson MD 11/30/2016 11:14 A
[2016-11-30] MEDS ORDERED: PERC5TAB6 PO (11:29)
[2016-11-30] MEDS ORDERED: GABA-282 PO (11:48)
[2016-11-30 11:52] VITALS: BP 126/70
--- NOTE | 2016-11-30 16:00 | REP ---
RIGHT RIBS, THREE VIEWS: HISTORY: Pain. There is no fracture or bone lesion. Linear densities are present in the right lower lobe consistent with scarring. IMPRESSION: Right lower lobe scarring. Signed by Simon Johnson MD 11/30/2016 04:06 P
== END 2016-11-30 12:03 | disposition home or self-care (01) ==
LOC: M ED 10:35
DX: R07.89 Other chest pain (principal); I10 Essential (primary) hypertension; R09.1 Pleurisy; Z85.41 Personal history of malignant neoplasm of cervix uteri; F41.9 Anxiety disorder, unspecified; F17.210 Nicotine dependence, cigarettes, uncomplicated; Z79.1 Long term (current) use of non-steroidal anti-inflammatories (NSAID); Z79.899 Other long term (current) drug therapy; Z88.0 Allergy status to penicillin; Z88.2 Allergy status to sulfonamides; M54.5 Low back pain

== ENCOUNTER → 2016-12-03 | Outpatient (REF) | payer MEDICARE ==
[~2016-12-03] MED LIST changes: +GABA-282 PO; +PERC5TAB6 PO
[2016-12-03 18:44] LABS: ERYTHROCYTE SEDIMENTATION RATE 3 mm/hr (0-30)
[2016-12-03 20:55] LABS: BASO % 0.5 % (0.0-1.0); EOS # 0.4 K/mm3 (0.0-0.50); EOS % 3.5 % (0.0-3.0); LARGE UNSTAINED CELL # 0.1 K/mm3 (0.0-0.4); LARGE UNSTAINED CELL % 0.9 % (0.0-4.0); LYMPH # 2.9 K/mm3 (1.5-4.5); LYMPH % 27.2 % (24.0-44.0); MEAN CORPUSCULAR HEMOGLOBIN 32.4 pg (27.0-33.0); MEAN CORPUSCULAR HGB CONC 34.3 g/dl (32.0-36.5); MEAN CORPUSCULAR VOLUME 94.6 fl (80.0-96.0); MONO # 0.4 K/mm3 (0.0-0.8); MONO % 3.8 % (0.0-5.0); NEUTROPHILS # 6.6 K/mm3 (1.8-7.7); NEUTROPHILS % 64.1 % (36.0-66.0); PLATELET COUNT, AUTOMATED 220 k/mm3 (150-450); RED CELL DISTRIBUTION WIDTH 12.8 % (11.5-14.5); WHITE BLOOD COUNT 10.2 K/mm3 (4.0-10.0)
== END ==
LOC: M SFHCPLAZ 11:23
PROVIDERS: ATTEND Family Medicine
DX: M94.0 Chondrocostal junction syndrome [Tietze] (principal)

== ENCOUNTER → 2017-03-28 | Outpatient (CLI) | payer MEDICARE, MEDICAID ==
[~2017-03-28] MED LIST changes: +PERC5TAB12 PO; -PERC5TAB6 PO; +PRED20TA PO
--- NOTE | 2017-03-28 13:25 | REP ---
LEFT HAND, FOUR VIEWS: HISTORY: Pain. There is no acute fracture or dislocation. There is narrowing of the intermediate and distal interphalangeal joint spaces. Small osteophytes are present at several intermediate and distal interphalangeal joint spaces. IMPRESSION: Degenerative change as described above. Signed by Simon Johnson MD 03/28/2017 01:55 P
== END ==
LOC: M RAD 12:13
PROVIDERS: ATTEND Nurse Practitioner Family
DX: M19.042 Primary osteoarthritis, left hand (principal)
CPT/HCPCS: 73130; G0463

== ENCOUNTER 2017-05-19 10:55 | Emergency (ER) | payer MEDICAID, MEDICARE ==
[~2017-05-19] VITALS: Ht 152.4 cm; Wt 50.0 kg
[~2017-05-19 10:55] MED LIST changes: -PRED20TA PO
[2017-05-19] MEDS ORDERED: IPRATROPIUM 0.5MG/ALBUTEROL 2.5MG INH SOL UD 3ML (DUONEB)(J7620) NEB PRN (13:15)
[2017-05-19 13:36] LABS: BASO % 0.5 % (0.0-1.0); EOS # 0.3 K/mm3 (0.0-0.50); EOS % 3.5 % (0.0-3.0); LARGE UNSTAINED CELL # 0.1 K/mm3 (0.0-0.4); LARGE UNSTAINED CELL % 1.5 % (0.0-4.0); LYMPH # 2.5 K/mm3 (1.5-4.5); LYMPH % 28.6 % (24.0-44.0); MEAN CORPUSCULAR HGB CONC 35.2 g/dl (32.0-36.5); MEAN CORPUSCULAR VOLUME 93.7 fl (80.0-96.0); MONO # 0.5 K/mm3 (0.0-0.8); MONO % 5.2 % (0.0-5.0); NEUTROPHILS # 5.4 K/mm3 (1.8-7.7); NEUTROPHILS % 60.8 % (36.0-66.0); PLATELET COUNT, AUTOMATED 227 k/mm3 (150-450); RED CELL DISTRIBUTION WIDTH 13.1 % (11.5-14.5); WHITE BLOOD COUNT 8.8 K/mm3 (4.0-10.0)
[2017-05-19 13:42] LABS: INR 0.89
[2017-05-19 14:03] LABS: ALBUMIN 3.6 GM/DL (3.2-5.2); ALBUMIN/GLOBULIN RATIO 1.24 (1.00-1.93); ALKALINE PHOSPHATASE 97 U/L (45-117); ALT/SGPT 22 U/L (12-78); ANION GAP 9 MEQ/L (8-16); AST/SGOT 12 U/L (15-37); BILIRUBIN,DIRECT < 0.1 MG/DL (0.0-0.2); BILIRUBIN,TOTAL 0.3 MG/DL (0.2-1.0); BLOOD UREA NITROGEN 17 MG/DL (7-18); CALCIUM LEVEL 7.9 MG/DL (8.8-10.2); CARBON DIOXIDE LEVEL 26 MEQ/L (21-32); CHLORIDE LEVEL 108 MEQ/L (98-107); CREATININE FOR GFR 0.83 MG/DL (0.55-1.02); GLOMERULAR FILTRATION RATE > 60.0 (>45); GLUCOSE, FASTING 72 MG/DL (80-110); POTASSIUM SERUM 4.2 MEQ/L (3.5-5.1); SODIUM LEVEL 143 MEQ/L (136-145); THYROXINE (T4) 9.1 UG/DL (4.5-12.0); TOTAL PROTEIN 6.5 GM/DL (6.4-8.2)
[2017-05-19] MEDS ORDERED: PRED20TA PO (14:21)
[2017-05-19] MEDS ORDERED: methylPREDNISolone INJ 125 MG/2 ML VIAL (J2930) IV ONE (14:30)
--- NOTE | 2017-05-19 14:32 | REP ---
CHEST, TWO VIEWS: Two views of the chest are performed and compared to prior study of 11/30/2016. There is bibasilar fibrotic change without evidence of acute infiltrate. Heart is normal in size. There is calcification and tortuosity of the thoracic aorta. The mediastinal silhouette is unchanged. There is mild biapical pleural thickening, unchanged. There are mild degenerative changes of the spine. IMPRESSION: Chronic changes without acute infiltrate. Signed by Baltazar Carlos MD 05/19/2017 07:17 P
[2017-05-19 14:59] VITALS: BP 113/67
--- NOTE | 2017-05-20 08:30 | ECGEPIP ---
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
== END 2017-05-19 15:05 | disposition home or self-care (01) ==
LOC: M ED 10:55
DX: J06.9 Acute upper respiratory infection, unspecified (principal); J40 Bronchitis, not specified as acute or chronic; I35.1 Nonrheumatic aortic (valve) insufficiency; F17.210 Nicotine dependence, cigarettes, uncomplicated; Z79.899 Other long term (current) drug therapy; Z79.82 Long term (current) use of aspirin; Z88.8 Allergy status to other drugs, medicaments and biological substances; Z88.2 Allergy status to sulfonamides; Z88.0 Allergy status to penicillin; Z88.1 Allergy status to other antibiotic agents
CPT/HCPCS: 71020; 80048; 80076; 82550; 82553; 83605; 83880; 84436; 84443; 84484; 85025; 85379; 85610; 86140; 87040; 87070; 87205; 87486; 87581; 87633; 87798; 93005; 93041; 94760; 96374; 99284; J2930

== ENCOUNTER → 2017-12-13 | Outpatient (REF) | payer MEDICARE ==
[2017-12-13 11:47] LABS: BASO % 0.5 % (0.0-1.0); EOS # 0.2 10^3/uL (0.0-0.50); EOS % 1.9 % (0.0-3.0); HEMATOCRIT 43.3 % (36.0-47.0); HEMOGLOBIN 14.7 g/dl (12.0-15.5); IMMATURE GRANULOCYTE % 0.2 % (0-3.0); LYMPH # 2.2 10^3/uL (1.5-4.5); LYMPH % 25.7 % (24.0-44.0); MEAN CORPUSCULAR HEMOGLOBIN 31.3 pg (27.0-33.0); MEAN CORPUSCULAR HGB CONC 33.9 g/dl (32.0-36.5); MEAN CORPUSCULAR VOLUME 92.1 fl (80.0-96.0); MONO # 0.6 10^3/uL (0.0-0.8); MONO % 7.2 % (0.0-5.0); NEUTROPHILS # 5.6 10^3/uL (1.8-7.7); NEUTROPHILS % 64.5 % (36.0-66.0); PLATELET COUNT, AUTOMATED 241 10^3/uL (150-450); RED CELL DISTRIBUTION WIDTH 13.4 % (11.5-14.5); WHITE BLOOD COUNT 8.6 10^3/uL (4.0-10.0)
== END ==
LOC: M SFHCPLAZ 10:04
DX: J22 Unspecified acute lower respiratory infection (principal)
CPT/HCPCS: 85025

== ENCOUNTER → 2017-12-13 | Outpatient (REF) | payer MEDICARE | LOC: M SFHCPLAZ 17:11 | DX: L57.0 Actinic keratosis (principal); D23.0 Other benign neoplasm of skin of lip | CPT/HCPCS: 88305 ==

== ENCOUNTER → 2017-12-15 | Outpatient (CLI) | payer MEDICARE | LOC: M RAD 10:17 | DX: J22 Unspecified acute lower respiratory infection (principal) | CPT/HCPCS: 71046 ==

== ENCOUNTER 2018-07-07 20:07 | Emergency (ER) | payer MEDICARE ==
[2018-07-07 20:55] LABS: BASO # 0.1 10^3/uL (0.0-0.2); BASO % 0.4 % (0.0-1.0); EOS # 0.1 10^3/uL (0.0-0.50); EOS % 0.5 % (0.0-3.0); HEMATOCRIT 42.2 % (36.0-47.0); HEMOGLOBIN 14.6 g/dl (12.0-15.5); IMMATURE GRANULOCYTE % 0.4 % (0-3.0); LYMPH % 14.9 % (24.0-44.0); MEAN CORPUSCULAR HEMOGLOBIN 31.8 pg (27.0-33.0); MEAN CORPUSCULAR HGB CONC 34.6 g/dl (32.0-36.5); MEAN CORPUSCULAR VOLUME 91.9 fl (80.0-96.0); MONO # 0.7 10^3/uL (0.0-0.8); MONO % 5.2 % (0.0-5.0); NEUTROPHILS # 10.3 10^3/uL (1.8-7.7); NEUTROPHILS % 78.6 % (36.0-66.0); PLATELET COUNT, AUTOMATED 190 10^3/uL (150-450); RED BLOOD COUNT 4.59 10^6/uL (4.00-5.40); WHITE BLOOD COUNT 13.1 10^3/uL (4.0-10.0)
[2018-07-07] MEDS: NITROGLYCERIN 0.4 MG SUBL TABLET SL (20:57)
[2018-07-07 21:10] LABS: INR 1.01; PROTHROMBIN TIME 13.4 SECONDS (12.1-14.4)
[2018-07-07 21:11] LABS: PARTIAL THROMBOPLASTIN TIME 24.6 SECONDS (25.4-37.6)
[2018-07-07] MEDS: GI COCKTAIL 50ML BTL(HYOSCYAMINE/MAALOX/LIDOCAINE VISCOUS)(1:3:1) PO (21:15)
[2018-07-07 21:24] LABS: ANION GAP 6 MEQ/L (8-16); BLOOD UREA NITROGEN 19 MG/DL (7-18); CARBON DIOXIDE LEVEL 27 MEQ/L (21-32); CHLORIDE LEVEL 106 MEQ/L (98-107); CK-MB VALUE MASS < 1.0 NG/ML (<3.6); CPK CREATINE PHOSPHOKINASE 74 U/L (26-192); CREATININE FOR GFR 0.92 MG/DL (0.55-1.30); GLOMERULAR FILTRATION RATE > 60.0 (>39); GLUCOSE, FASTING 114 MG/DL (70-100); MB/CK RELATIVE INDEX 1.35 (< OR =4); POTASSIUM SERUM 4.1 MEQ/L (3.5-5.1); SODIUM LEVEL 139 MEQ/L (136-145); TROPONIN I < 0.02 NG/ML (< 0.10)
[2018-07-08 01:04] LABS: CPK CREATINE PHOSPHOKINASE 64 U/L (26-192); MB/CK RELATIVE INDEX 1.88 (< OR =4); TROPONIN I < 0.02 NG/ML (< 0.10)
== END 2018-07-08 01:42 | disposition home or self-care (01) ==
LOC: M ED 07-08 01:42
DX: K21.9 Gastro-esophageal reflux disease without esophagitis (principal); R00.1 Bradycardia, unspecified; J84.10 Pulmonary fibrosis, unspecified; I51.9 Heart disease, unspecified; Z98.61 Coronary angioplasty status; Z72.0 Tobacco use; Z82.49 Family history of ischemic heart disease and other diseases of the circulatory system; Z79.82 Long term (current) use of aspirin; Z79.899 Other long term (current) drug therapy; Z88.8 Allergy status to other drugs, medicaments and biological substances; Z88.1 Allergy status to other antibiotic agents; Z88.0 Allergy status to penicillin; Z88.2 Allergy status to sulfonamides
CPT/HCPCS: 71046

== ENCOUNTER → 2018-11-10 | Outpatient (REF) | payer MEDICARE ==
[~2018-11-10] MED LIST changes: -GABA-282 PO; +GABA-843 PO; +HYDR-3719; -NICO21DI5 TD; +NICO21DI6 TD; +OMEP40CA2 PO; +PRED20TA PO; +SERT-155
[2018-11-10 12:55] LABS: CREATININE, URINE 90.7 MG/DL; MALB URINE SIEMENS 8.9 MG/L; MAU/CREAT RATIO 9.8 MCG/MG (0.0-30.0)
[2018-11-10 13:16] LABS: HEMATOCRIT 45.4 % (36.0-47.0); MEAN CORPUSCULAR HEMOGLOBIN 31.2 pg (27.0-33.0); MEAN CORPUSCULAR VOLUME 94.4 fl (80.0-96.0); PLATELET COUNT, AUTOMATED 237 10^3/uL (150-450); RED BLOOD COUNT 4.81 10^6/uL (4.00-5.40); WHITE BLOOD COUNT 7.5 10^3/uL (4.0-10.0)
[2018-11-10 13:17] LABS: ALBUMIN 3.8 GM/DL (3.2-5.2); ALT/SGPT 15 U/L (12-78); BILIRUBIN,TOTAL 0.4 MG/DL (0.2-1.0); BLOOD UREA NITROGEN 20 MG/DL (7-18); CALCIUM LEVEL 8.8 MG/DL (8.8-10.2); CARBON DIOXIDE LEVEL 28 MEQ/L (21-32); CHLORIDE LEVEL 107 MEQ/L (98-107); CREATININE FOR GFR 0.88 MG/DL (0.55-1.30); GLOMERULAR FILTRATION RATE > 60.0 (>39); GLUCOSE, FASTING 95 MG/DL (70-100); POTASSIUM SERUM 4.3 MEQ/L (3.5-5.1); SODIUM LEVEL 141 MEQ/L (136-145); TOTAL PROTEIN 6.8 GM/DL (6.4-8.2)
== END ==
LOC: M SFHCPLAZ 08:02
PROVIDERS: ATTEND Family Medicine
DX: F32.9 Major depressive disorder, single episode, unspecified (principal); I10 Essential (primary) hypertension

== ENCOUNTER → 2018-11-20 | Outpatient (REF) | payer MEDICARE ==
[~2018-11-20] MED LIST changes: +CHLO125TA PO; -CHLO25TA PO; +HYDR-3715 PO; -NORCOTAB PO
[2018-11-20 19:07] LABS: HEMATOCRIT 41.7 % (36.0-47.0); MEAN CORPUSCULAR HEMOGLOBIN 30.8 pg (27.0-33.0); MEAN CORPUSCULAR HGB CONC 33.6 g/dl (32.0-36.5); MEAN CORPUSCULAR VOLUME 91.6 fl (80.0-96.0); PLATELET COUNT, AUTOMATED 213 10^3/uL (150-450); RED BLOOD COUNT 4.55 10^6/uL (4.00-5.40); WHITE BLOOD COUNT 8.5 10^3/uL (4.0-10.0)
[2018-11-20 19:22] LABS: BLOOD UREA NITROGEN 19 MG/DL (7-18); CALCIUM LEVEL 8.7 MG/DL (8.8-10.2); CARBON DIOXIDE LEVEL 28 MEQ/L (21-32); CHLORIDE LEVEL 107 MEQ/L (98-107); CREATININE FOR GFR 0.81 MG/DL (0.55-1.30); GLOMERULAR FILTRATION RATE > 60.0 (>39); GLUCOSE, FASTING 71 MG/DL (70-100); POTASSIUM SERUM 4.6 MEQ/L (3.5-5.1); SODIUM LEVEL 140 MEQ/L (136-145)
== END ==
LOC: M SFHCPLAZ 15:25
DX: K62.5 Hemorrhage of anus and rectum (principal); R19.7 Diarrhea, unspecified
CPT/HCPCS: 80048; 85027; G0463

== ENCOUNTER → 2018-12-19 | Outpatient (CLI) | payer MEDICARE ==
--- NOTE | 2018-12-19 10:54 | REP ---
CT without contrast: History: Low dose screening exam. Nicotine dependence. Comparison chest x-ray July 07, 2018. Comparison chest CT studies are from January 10, 2015 and November 13, 2007. CT findings: Emphysematous changes are noted similar to prior study consistent with COPD. There is a stable somewhat nodular fibrotic density in the right lower lobe on page 51 of 105 of today's study. This is unchanged from 2015 and less prominent than it was in 2008. There is a 3 mm nodule in the right lower lobe on page 62 which is not apparent previously. There is a 4 mm nodule in the left lower lobe on page 69 of today's study which is unchanged from prior studies including the 2007 exam. There is a 4 mm nodule in the right lower lobe on page 76. This is unchanged from the 2015 prior study. There are bilateral lower lobe linear fibrotic changes. Fibrosis is seen in the right middle lobe and in the lingula. Vascular calcifications noted. Lastly, there is a 4 mm right lower lobe nodule on page 81 of 105 which is unchanged from the 2015 prior study. Impression: Multiple small subcentimeter nodules which are stable. One new nodule is visualized in the right lower lobe. This measures 3 mm. Lung-RADS category II benign findings. Repeat screening exam suggested 1 year. Electronically Signed by Grabiel Eaton MD 12/19/2018 04:40 P
== END ==
LOC: M RAD 09:58
PROVIDERS: ATTEND Student in an Organized Health Care Education/Training Program
DX: R91.8 Other nonspecific abnormal finding of lung field (principal); F17.210 Nicotine dependence, cigarettes, uncomplicated

== ENCOUNTER → 2019-01-07 | Outpatient (REF) | payer MEDICARE | LOC: M SFHCPLAZ 09:57 | PROVIDERS: ATTEND Family Medicine | DX: R10.11 Right upper quadrant pain (principal); Z53.8 Procedure and treatment not carried out for other reasons ==

== ENCOUNTER → 2019-01-08 | Outpatient (CLI) | payer MEDICARE ==
[2019-01-08 08:57] LABS: ALBUMIN 3.8 GM/DL (3.2-5.2); BILIRUBIN,DIRECT 0.1 MG/DL (0.0-0.2); BILIRUBIN,TOTAL 0.5 MG/DL (0.2-1.0); TOTAL PROTEIN 6.4 GM/DL (6.4-8.2)
--- NOTE | 2019-01-08 09:21 | REP ---
Upper quadrant sonography: History: Acute abdominal pain in the right upper quadrant. Comparison CT study of the abdomen is from June 17, 2014. Comparison sonography November 16, 2011. Comparison sonography showed a 7.5 mm hemangioma in the right lobe of the liver and a 3 mm gallbladder polyp. Sonographic findings: Scanning through the right upper quadrant of the abdomen demonstrates a normal sized thin-walled gallbladder without evidence of stone. There are polyps on the gallbladder wall the largest of which measures 5 mm in greatest dimension on today's images. Common bile duct is normal measuring 0.2 cm in greatest diameter. There are two small hemangiomas of the liver manifest as small hyperechoic nodules. Each of these measures 0.7 and 0.8 cm in greatest diameter. No focal liver mass lesion is seen. Limited views of the pancreas show no abnormality. There is no evidence of ascites or right renal abnormality. The right kidney measures 9.1 x 4.4 x 3.3 cm. Impression: Small benign hemangiomas of the liver. Gallbladder wall polyps. No stone seen. Otherwise negative. Electronically Signed by Grabiel Eaton MD 01/08/2019 01:56 P
== END ==
LOC: M RAD 07:12
PROVIDERS: ATTEND Student in an Organized Health Care Education/Training Program
DX: K82.4 Cholesterolosis of gallbladder (principal); D18.09 Hemangioma of other sites

== ENCOUNTER → 2019-01-30 | Outpatient (CLI) | payer MEDICARE ==
[2019-01-30 14:53] LABS: BASO % 0.5 % (0.0-1.0); EOS # 0.2 10^3/uL (0.0-0.50); EOS % 2.6 % (0.0-3.0); HEMATOCRIT 43.7 % (36.0-47.0); HEMOGLOBIN 14.6 g/dl (12.0-15.5); LYMPH # 2.9 10^3/uL (1.5-4.5); MEAN CORPUSCULAR HEMOGLOBIN 31.1 pg (27.0-33.0); MEAN CORPUSCULAR HGB CONC 33.4 g/dl (32.0-36.5); MONO # 0.6 10^3/uL (0.0-0.8); MONO % 7.2 % (0.0-5.0); NEUTROPHILS # 4.4 10^3/uL (1.8-7.7); NEUTROPHILS % 53.5 % (36.0-66.0); PLATELET COUNT, AUTOMATED 212 10^3/uL (150-450); WHITE BLOOD COUNT 8.2 10^3/uL (4.0-10.0)
[2019-01-30 15:20] LABS: ALBUMIN 3.7 GM/DL (3.2-5.2); BILIRUBIN,DIRECT 0.1 MG/DL (0.0-0.2); BILIRUBIN,TOTAL 0.4 MG/DL (0.2-1.0); TOTAL PROTEIN 6.8 GM/DL (6.4-8.2)
--- NOTE | 2019-01-30 15:32 | REP ---
Chest two views HISTORY: Right rib pain Comparison: 07/07/2018 The lungs are hyperinflated. Linear densities are present in the lower lobes consistent with chronic fibrosis. The heart is normal in size. The pulmonary vasculature is normal in appearance. The bony structure is intact. IMPRESSION: Bibasilar chronic fibrosis. Electronically Signed by Simon Johnson MD 01/30/2019 03:23 P
--- NOTE | 2019-01-30 18:03 | REP ---
UNILATERAL RIGHT RIBS, FOUR VIEWS: HISTORY: Rib pain. There is no acute fracture or bone lesion. Linear densities are present in the right lower lobe consistent with scarring. IMPRESSION: No acute disease. Electronically Signed by Simon Johnson MD 01/30/2019 06:09 P
== END ==
LOC: M LAB 14:01
PROVIDERS: ATTEND Obstetrics & Gynecology
DX: J84.10 Pulmonary fibrosis, unspecified (principal)

== ENCOUNTER → 2019-02-11 | Outpatient (REF) | payer MEDICARE ==
[2019-02-13 00:07] LABS: ANTINUCLEAR ANTIBODIES DIRECT Negative (Negative)
== END ==
LOC: M SFHCPLAZ 10:36
PROVIDERS: ATTEND Family Medicine
DX: R63.4 Abnormal weight loss (principal)

== ENCOUNTER → 2019-03-27 | Outpatient (CLI) | payer MEDICARE ==
--- NOTE | 2019-03-27 15:09 | REP ---
Clinical: Cough and shortness of breath. Technique: PA and lateral. Comparison: 02/02/2019. Findings: Mediastinum and cardiac silhouette are within normal limits and stable. Lung quijano demonstrate COPD/emphysematous changes and chronic scattered stable scarring. No acute consolidation, effusion, or pneumothorax. Skeletal structures demonstrate age-related osteopenia and degenerative change. Impression: Chronic stable changes. No acute cardiopulmonary process. Electronically Signed by Gerardo Lee MD 03/27/2019 03:01 P
== END ==
LOC: M RAD 14:30
PROVIDERS: ATTEND Physician Assistant
DX: J44.9 Chronic obstructive pulmonary disease, unspecified (principal)

== ENCOUNTER → 2019-03-28 | Outpatient (REF) | payer MEDICARE | LOC: M LAB REF 10:00 | PROVIDERS: ATTEND Physician Assistant | DX: R05 Cough (principal) ==

== ENCOUNTER → 2019-05-08 | Outpatient (CLI) | payer MEDICARE ==
--- NOTE | 2019-05-08 12:30 | REPMRS ---
Patient History The patient states she has not had a clinical breast exam in over a year. Family history of prostate cancer at age 50 or over in father. 3D TOMOSYNTHESIS WAS PERFORMED. The Faraz Melgoza lifetime risk for breast cancer is 3.8%. Digital Woman Screen Mammo: May 08, 2019 - Exam #: [id number] Bilateral CC and MLO view(s) were taken. Technologist: Karen Chaudhary, Technologist Prior study comparison: March 05, 2016, digital woman screen mammo performed at [facility]. November 23, 2011, bilateral digital mammo screening bilat, performed at [facility]. FINDINGS: The breast tissue is heterogeneously dense. This may lower the sensitivity of mammography. There has been no change in the appearance of the mammogram from the prior studies. There is a moderate amount of residual fibroglandular tissue which is fairly symmetric. There is no interval development of dominant mass, areas of architectural distortion, or clustered microcalcification typical of malignancy. Assessment: BI-RADS/ACR category 1 mammogram. Negative Mammogram. Recommendation Routine screening mammogram in 1 year (for women over age 40). This mammogram was interpreted with the aid of an FDA-approved computer-aided dectection system. Electronically Signed By: Baltazar Carlos MD 05/08/19 [id number]
== END ==
LOC: M WHC 10:38
PROVIDERS: ATTEND Family Medicine
DX: Z12.31 Encounter for screening mammogram for malignant neoplasm of breast (principal); Z80.42 Family history of malignant neoplasm of prostate

== ENCOUNTER → 2019-05-11 | Outpatient (REF) | payer MEDICARE ==
[~2019-05-11] MED LIST changes: -OMEP40CA2 PO; +OMEP40CA97 PO; -SERT-155; +SERT50TA29
[2019-05-11 17:53] LABS: APPEARANCE, URINE HAZY (CLEAR); BACTERIA, URINE AUTO 2+ (NEGATIVE); BILIRUBIN, URINE AUTO NEGATIVE (NEGATIVE); BLOOD, URINE BLOOD NEGATIVE (NEGATIVE); COLOR, URINE YELLOW (YELLOW); GLUCOSE, URINE (UA) AUTO NEGATIVE (NEGATIVE); KETONE, URINE AUTO TRACE mg/dL (NEGATIVE); LEUKOCYTE ESTERASE, URINE AUTO NEGATIVE (NEGATIVE); MUCUS, URINE SMALL (NEGATIVE); NITRITE, URINE AUTO NEGATIVE (NEGATIVE); PROTEIN, URINE AUTO NEGATIVE (NEGATIVE); RBC, URINE AUTO 19 /HPF (0-3); SPECIFIC GRAVITY URINE AUTO 1.023 (1.002-1.035); SQUAMOUS EPITHELIAL CELL UR AU 3 /HPF (0-6); WBC, URINE AUTO 1 /HPF (0-3)
[2019-05-11 19:46] LABS: HEMATOCRIT 42.8 % (36.0-47.0); HEMOGLOBIN 14.6 g/dl (12.0-15.5); MEAN CORPUSCULAR HEMOGLOBIN 32.3 pg (27.0-33.0); MEAN CORPUSCULAR HGB CONC 34.1 g/dl (32.0-36.5); MEAN CORPUSCULAR VOLUME 94.7 fl (80.0-96.0); PLATELET COUNT, AUTOMATED 199 10^3/uL (150-450); RED BLOOD COUNT 4.52 10^6/uL (4.00-5.40); WHITE BLOOD COUNT 8.7 10^3/uL (4.0-10.0)
== END ==
LOC: M SFHCPLAZ 15:26
PROVIDERS: ATTEND Family Medicine
DX: R63.4 Abnormal weight loss (principal)
CPT/HCPCS: 36415; 81001; 85027; 86580; G0463

== ENCOUNTER → 2019-05-26 | Outpatient (REF) | payer MEDICARE ==
[~2019-05-26] MED LIST changes: +OMEP40CA2 PO; -OMEP40CA97 PO; +SERT-155; -SERT50TA29
[2019-05-26 18:37] LABS: APPEARANCE, URINE HAZY (CLEAR); BACTERIA, URINE AUTO NEGATIVE (NEGATIVE); BILIRUBIN, URINE AUTO NEGATIVE (NEGATIVE); BLOOD, URINE BLOOD 1+ (NEGATIVE); CALCIUM OXALATE CRYSTALS SMALL; COLOR, URINE YELLOW (YELLOW); GLUCOSE, URINE (UA) AUTO NEGATIVE (NEGATIVE); KETONE, URINE AUTO TRACE mg/dL (NEGATIVE); LEUKOCYTE ESTERASE, URINE AUTO NEGATIVE (NEGATIVE); MUCUS, URINE SMALL (NEGATIVE); NITRITE, URINE AUTO NEGATIVE (NEGATIVE); PROTEIN, URINE AUTO NEGATIVE (NEGATIVE); RBC, URINE AUTO 8 /HPF (0-3); SQUAMOUS EPITHELIAL CELL UR AU 0 /HPF (0-6); UROBILINOGEN, URINE AUTO 0.2 mg/dL (0.0-2.0); WBC, URINE AUTO 2 /HPF (0-3)
== END ==
LOC: M SMT 17:07
PROVIDERS: ATTEND Nurse Practitioner Women's Health
DX: R31.29 Other microscopic hematuria (principal)
CPT/HCPCS: 81001; 87086; 88108; G0463

== ENCOUNTER → 2019-05-27 | Outpatient (CLI) | payer MEDICARE ==
[2019-05-27 16:13] LABS: BLOOD UREA NITROGEN 17 MG/DL (7-18); CALCIUM LEVEL 9.1 MG/DL (8.8-10.2); CARBON DIOXIDE LEVEL 28 MEQ/L (21-32); CHLORIDE LEVEL 105 MEQ/L (98-107); GLOMERULAR FILTRATION RATE > 60.0 (>39); GLUCOSE, FASTING 89 MG/DL (70-100); POTASSIUM SERUM 4.5 MEQ/L (3.5-5.1); SODIUM LEVEL 139 MEQ/L (136-145)
== END ==
LOC: M LAB 14:24
PROVIDERS: ATTEND Nurse Practitioner Women's Health
DX: R31.29 Other microscopic hematuria (principal)

== ENCOUNTER → 2019-06-19 | Outpatient (CLI) | payer MEDICARE ==
[~2019-06-19] MED LIST changes: +ISOVUE-370 76% 100ML VIAL (Q9967) As Ordered ONE; -OMEP40CA2 PO; +OMEP40CA97 PO; -SERT-155; +SERT50TA29
--- NOTE | 2019-06-19 17:23 | REP ---
REASON: Microscopic hematuria. The latest prior for comparison is 06/15/2014, a noncontrast enhanced examination with other older priors for review as well, some with contrast and some without. Some before and after. There are chronic lung base changes status quo. The precontrast enhanced portion of the examination shows a simple cyst in the lateral segment of the left lobe of the liver increased slightly in size from prior exams. In the interpolar region of the left kidney there is a round 1.3 cm sized focal area of low density which has water density Hounsfield unit readings. This has increased slightly in size from the prior exam. There is calcific atherosclerotic change seen in the abdominal aorta. There are no nephroliths. There are no urinary bladder calcifications. There are no ureteroliths. There are bilateral pelvic phleboliths status quo. The contrast enhanced portion of the examination shows the cystic lesion seen in the left kidney to show no evidence of contrast enhancement what so ever. There are no enhancing renal lesions. The cyst in the liver is unremarkable. There are no enhancing hepatic abnormalities. The spleen, pancreas and adrenal glands are within normal limits and essentially unchanged. There is pancreatic atrophy and there are some chronic pancreatic calcifications status quo. The abdominal aorta and paraaortic regions are within normal limits for the patient's age. There is calcific atherosclerotic change in the aorta and common iliac arteries with bilateral common iliac arterial ectasis increased slightly from the prior exams. There is no free fluid or free air in the abdomen. The bowel loops and their mesenteries are unremarkable. CT PELVIS: The bowel loops and their mesenteries are within normal limits. There is no free fluid or free air. There is no evidence of a pelvic mass or adenopathy. Bone window technique throughout the exam shows chronic spinal, hip, sacroiliac joint degenerative changes increased slightly from the prior exams. IMPRESSION:There is no evidence of acute intraabdominal or intrapelvic disease. There is a simple left renal cyst which is Bosniak class 1 as described above. There are chronic changes present. Electronically Signed by Danilo Carter DO 06/22/2019 02:27 P
== END ==
LOC: M RAD 12:11
PROVIDERS: ATTEND Nurse Practitioner Women's Health
DX: R31.9 Hematuria, unspecified (principal)
CPT/HCPCS: 74178; Q9967

== ENCOUNTER → 2019-07-03 | Outpatient (REF) | payer MEDICARE ==
[~2019-07-03] MED LIST changes: -ISOVUE-370 76% 100ML VIAL (Q9967) As Ordered ONE
== END ==
LOC: M SFHCPLAZ 10:44
PROVIDERS: ATTEND Family Medicine
DX: L57.0 Actinic keratosis (principal); L57.8 Other skin changes due to chronic exposure to nonionizing radiation

== ENCOUNTER → 2019-07-06 | Outpatient (REF) | payer MEDICARE | LOC: M SFHCPLAZ 15:18 | PROVIDERS: ATTEND Family Medicine | DX: H57.12 Ocular pain, left eye (principal); R63.4 Abnormal weight loss | CPT/HCPCS: 36415; 84443; G0463 ==

== ENCOUNTER → 2019-08-11 | Outpatient (REF) | payer MEDICARE | LOC: M LAB REF 11:46 | PROVIDERS: ATTEND Physician Assistant Medical | DX: R05 Cough (principal) ==

== ENCOUNTER → 2019-10-07 | Outpatient (CLI) | payer MEDICARE ==
--- NOTE | 2019-10-07 10:50 | REPVR ---
PROCEDURE INFORMATION: Exam: CT Maxillofacial Without Contrast, Sinus Exam date and time: 10/07/2019 9:55 AM Age: 74 years old Clinical indication: Sinusitis; Chronic; Additional info: Chronic sinusitis TECHNIQUE: Imaging protocol: CT Maxillofacial without contrast. Focus on the sinuses. Radiation optimization: All CT scans at this facility use at least one of these dose optimization techniques: automated exposure control; mA and/or kV adjustment per patient size (includes targeted exams where dose is matched to clinical indication); or iterative reconstruction. COMPARISON: No relevant prior studies available. FINDINGS: Frontal sinuses: Normal. No air-fluid levels. Ethmoid air cells: Normal. No air-fluid levels. Sphenoid sinuses: Normal. No air-fluid levels. Maxillary sinuses: Normal. No air-fluid levels. Ostiomeatal units are patent. Orbits: Orbits are normal. Globes are unremarkable. Nasal cavity/Septum: There is rightward nasal septal deviation with a spur. There is a armando bullosa of the left middle turbinate. Soft tissues: Unremarkable. Bones/joints: Unremarkable. IMPRESSION: No significant sinus mucosal disease. Electronically signed by: Mally Jay On 10/07/2019 10:50:12 AM
== END ==
LOC: M RAD 09:46
PROVIDERS: ATTEND Otolaryngology
DX: J32.9 Chronic sinusitis, unspecified (principal)

== ENCOUNTER → 2019-10-07 | Outpatient (CLI) | payer MEDICARE ==
[2019-10-07 11:10] LABS: BILIRUBIN,DIRECT 0.2 MG/DL (0.0-0.2); BILIRUBIN,TOTAL 0.5 MG/DL (0.2-1.0); TOTAL PROTEIN 6.8 GM/DL (6.4-8.2)
== END ==
LOC: M LAB 10:02
PROVIDERS: ATTEND Family Medicine
DX: R07.9 Chest pain, unspecified (principal)

== ENCOUNTER 2020-04-08 12:27 | Emergency (ER) | payer MEDICARE ==
[~2020-04-08 12:27] MED LIST changes: -ASPI81TA85 PO; +ASPI81TA86 PO
--- NOTE | 2020-05-11 14:52 | ECGEPIP ---
SINUS BRADYCARDIA NONSPECIFIC ST & T-WAVE ABNORMALITY BORDERLINE ECG SEE SCANNED DOWNTIME REPORT MTDD
--- NOTE | 2020-05-11 14:53 | ECGEPIP ---
SINUS BRADYCARDIA NONSPECIFIC ST & T-WAVE ABNORMALITY BORDERLINE ECG SEE SCANNED DOWNTIME REPORT MTDD
[2020-05-23 11:42] LABS: BASO % 0.4 % (0.0-1.0); EOS # 0.1 10^3/uL (0.0-0.5); EOS % 1.4 % (0.0-3.0); HEMATOCRIT 42.2 % (36.0-47.0); HEMOGLOBIN 14.3 g/dl (12.0-15.5); LYMPH # 2.3 10^3/uL (1.5-5.0); LYMPH % 31.4 % (24.0-44.0); MEAN CORPUSCULAR HEMOGLOBIN 32.7 pg (27.0-33.0); MEAN CORPUSCULAR HGB CONC 33.9 g/dl (32.0-36.5); MEAN CORPUSCULAR VOLUME 96.6 fl (80.0-96.0); MONO # 0.5 10^3/uL (0.0-0.8); MONO % 7.4 % (0.0-5.0); NEUTROPHILS # 4.3 10^3/uL (1.5-8.5); PLATELET COUNT, AUTOMATED 185 10^3/uL (150-450); RED BLOOD COUNT 4.37 10^6/uL (4.00-5.40); WHITE BLOOD COUNT 7.3 10^3/uL (4.0-10.0)
[2020-07-01 12:50] LABS: ALBUMIN 3.8 GM/DL (3.2-5.2); ALT/SGPT 22 U/L (12-78); BILIRUBIN,DIRECT < 0.1 MG/DL (0.0-0.2); BILIRUBIN,TOTAL 0.4 MG/DL (0.2-1.0); BLOOD UREA NITROGEN 19 MG/DL (7-18); CALCIUM LEVEL 8.8 MG/DL (8.8-10.2); CARBON DIOXIDE LEVEL 30 MEQ/L (21-32); CHLORIDE LEVEL 107 MEQ/L (98-107); CK-MB VALUE MASS 1.5 NG/ML (<3.6); CPK CREATINE PHOSPHOKINASE 66 U/L (26-192); CREATININE FOR GFR 0.95 MG/DL (0.55-1.30); GLOMERULAR FILTRATION RATE > 60.0 (>39); GLUCOSE, FASTING 77 MG/DL (70-100); LIPASE 83 U/L (73-393); MB/CK RELATIVE INDEX 2.27 (< OR =4); SODIUM LEVEL 141 MEQ/L (136-145); TOTAL PROTEIN 6.9 GM/DL (6.4-8.2); TROPONIN I < 0.02 NG/ML (< 0.10)
== END 2020-04-08 17:26 | disposition home or self-care (01) ==
LOC: M ED 12:27
DX: R07.89 Other chest pain (principal); R91.8 Other nonspecific abnormal finding of lung field; R42 Dizziness and giddiness; J44.9 Chronic obstructive pulmonary disease, unspecified; I10 Essential (primary) hypertension; K58.8 Other irritable bowel syndrome; F17.210 Nicotine dependence, cigarettes, uncomplicated; Z88.0 Allergy status to penicillin; Z88.1 Allergy status to other antibiotic agents; Z88.8 Allergy status to other drugs, medicaments and biological substances; Z88.2 Allergy status to sulfonamides; Z79.82 Long term (current) use of aspirin; Z79.899 Other long term (current) drug therapy

== ENCOUNTER → 2020-06-21 | Outpatient (CLI) | payer MEDICARE ==
--- NOTE | 2020-06-21 08:42 | PFTRPT ---
Height: 58.00 Inches Weight: 100.00 Lbs BSA: 1.36 Diagnosis: J44.9 DATE: 06/21/2020 ORDERING PHYSICIAN: Jd Corona M.D. Technique: Pre- and post-bronchodilator study of excellent technical quality. Forced vital capacity is normal. FEV1 is out of proportion of obstructive index; therefore, reduced. Expiratory limit within the flow-volume loop is consistent with flow rate limitation. Favorable bronchodilator response identified. Total lung capacity mildly elevated. Residual volume is consistent with air trapping. Diffusing capacity is significantly reduced, and does not correct for alveolar volume. Hemoglobin is acceptable at 13.4. Airway resistance elevated with concomitant decrease in airway conductance. IMPRESSION: At least moderate obstructive ventilatory impairment with air trapping and suspected emphysema. Favorable bronchodilator response. Please correlate clinically. MTDD
== END ==
LOC: M CARPUL 08:04
PROVIDERS: ATTEND Internal Medicine Pulmonary Disease
DX: J44.9 Chronic obstructive pulmonary disease, unspecified (principal)

== ENCOUNTER → 2020-08-02 | Outpatient (CLI) | payer MEDICARE ==
--- NOTE | 2020-08-02 16:21 | REP ---
INDICATION: NICOTINE DEPEND. COMPARISON: Comparison CT studies December 19, 2018 and January 10, 2015.. TECHNIQUE: Contiguous 3 mm lung window only axial images. No IV contrast. Low-dose exam. FINDINGS: Lungs are hyperinflated as before with extensive emphysematous changes in the upper lobes bilaterally. There are scattered small subcentimeter nodules in the lung quijano. All of these are unchanged from the prior study of December 19, 2018. There are mild bibasilar linear fibrotic changes. No new pulmonary nodule or mass lesion is observed. The lesion which was felt to be new in the right lower lobe on the most recent prior study of December 19, 2018 is not visible on today's exam. IMPRESSION: Lung RADS category 1 findings. Repeat screening chest CT study suggested in 1 year. <Electronically signed by Lenny Eaton > 08/02/20 [id number]
== END ==
LOC: M RAD 12:47
PROVIDERS: ATTEND Internal Medicine Pulmonary Disease
DX: R91.8 Other nonspecific abnormal finding of lung field (principal); F17.218 Nicotine dependence, cigarettes, with other nicotine-induced disorders

== ENCOUNTER → 2020-09-09 | Outpatient (CLI) | payer MEDICARE ==
[~2020-09-09] MED LIST changes: +GABA-282 PO; -GABA-843 PO; -LISI-538 PO; +LISI10TA22 PO; -LISI10TA4 PO; +LISI20TA33 PO
--- NOTE | 2020-09-11 07:54 | REPPI ---
INDICATION: PAIN IN LEFT SHOULDER COMPARISON: None. TECHNIQUE: Internal rotation, external rotation, and Y view. FINDINGS: Minimal cortical irregularity at the acromioclavicular joint as well as subtle blunting along the inferior margin of the glenoid rim suggest mild degenerative changes. There is no evidence for acute fracture or dislocation. Subacromial space is normal. No periarticular loose bodies or calcifications noted. IMPRESSION: Essentially age-appropriate examination. No overt osteoarthritic findings appreciated. <Electronically signed by Gerardo Lee > 09/11/20 1230
== END ==
LOC: M PLAIMG 12:17
PROVIDERS: ATTEND Family Medicine
DX: M25.512 Pain in left shoulder (principal)

== ENCOUNTER → 2021-01-12 | Outpatient (CLI) | payer MEDICARE | LOC: M LABSMTC 11:07 | PROVIDERS: ATTEND Internal Medicine Cardiovascular Disease | DX: Z01.812 Encounter for preprocedural laboratory examination (principal); R07.89 Other chest pain; Z20.822 Contact with and (suspected) exposure to COVID-19 ==

== ENCOUNTER → 2021-01-30 | Outpatient (CLI) | payer MEDICARE ==
--- NOTE | 2021-01-31 09:32 | DEXAMM ---
INDICATION: Z13.820 SCREENING FOR OSTEOPOROSIS. COMPARISON: 03/02/2011, 07/30/2007. TECHNIQUE: Bone density was measured using dual-energy x-ray absorptiometry (DEXA). FINDINGS: AP SPINE L1-L4 BMD 0.791 g/cm2 Young Adult T-Score -3.3 Age Matched Z-Score -1.5. LT FEMUR, TOTAL BMD 0.591 g/cm2 Young Adult T-Score -3.3 Age Matched Z-Score -1.7. LT NECK BMD 0.564 g/cm2 Young Adult T-Score -3.4 Age Matched Z-Score -1.6. RT FEMUR, TOTAL BMD 0.610 g/cm2 Young Adult T-Score -3.2 Age Matched Z-Score -1.5. RT NECK BMD 0.589 g/cm2 Young Adult T-Score -3.2 Age Matched Z-Score -1.4. IMPRESSION: There is osteoporosis of the spine. There is osteoporosis of the left hip. There is osteoporosis of the right hip. The density of the spine has decreased 3.1% since the initial exam on 07/30/2007. The density of the spine decreased 7.1% since most recent exam on 03/02/2011. The density of the left hip has decreased 20.9% since initial exam on 07/30/2007. The density of the left hip has decreased 16.8% since most recent exam on 03/02/2011. The density of the right hip has decreased 22.1% since the initial exam on 07/30/2007. The density of the right hip has decreased 16.8% since the most recent exam on 03/02/2011. FOLLOW-UP: Recommendation for the next bone density exam: 2 years. <Electronically signed by Baltazar Carlos > 01/31/21 0929
== END ==
LOC: M WHC 15:09
PROVIDERS: ATTEND Family Medicine
DX: Z12.31 Encounter for screening mammogram for malignant neoplasm of breast (principal); Z13.820 Encounter for screening for osteoporosis; M81.0 Age-related osteoporosis without current pathological fracture

== ENCOUNTER → 2021-02-01 | Outpatient (CLI) | payer MEDICARE ==
--- NOTE | 2021-02-02 05:52 | REP ---
INDICATION: RENAL CYST COMPARISON: None TECHNIQUE: Real time manuel scale ultrasound examination using curved array transducer. FINDINGS: Right kidney is normal in contour, size, echogenicity, and reniform shape without hydronephrosis, nephrolithiasis, cystic or renal mass lesion. Kidney measures 9.5 x 3.9 x 5.0 cm. Left kidney measures 9.7 x 5.0 x 4.0 cm and includes 2.4 x 1.9 x 2.1 cm cortical midpole cyst. No hydronephrosis, nephrolithiasis, or renal mass lesion. IMPRESSION: 1. Simple left renal cyst. <Electronically signed by Gerardo Lee > 02/02/21 0525
== END ==
LOC: M RAD 11:06
PROVIDERS: ATTEND Family Medicine
DX: N28.1 Cyst of kidney, acquired (principal)

== ENCOUNTER → 2021-02-23 | Outpatient (CLI) | payer MEDICARE ==
[~2021-02-23] MED LIST changes: +OMEP40CA4 PO; -OMEP40CA97 PO
--- NOTE | 2021-02-23 14:59 | REP ---
INDICATION: KIERSTEN DIAG MAMMO/N64.4 BREAST PAIN; N64.4 KIERSTEN BREAST PAIN. Patient reports recent weight loss. Left sided posterior breast/chest wall pain and tenderness. COMPARISON: Comparison mammography is reviewed from November 05, 2018, March 05, 2016, and November 23, 2011. TECHNIQUE: Routine views of each breast were obtained. These are augmented by 3D tomography. In addition and magnified focal spot-compression images of the left breast is acquired in the MLO projection and laterally exaggerated CC views are obtained bilaterally. Targeted left breast sonography is performed. FINDINGS: Breast parenchyma is heterogeneously dense in a pattern which may inhibit the sensitivity mammography. There are stable amorphous and vascular calcifications in the left breast. There are scattered bilateral benign macrocalcifications and vascular calcification bilaterally. No dominant density is seen in either breast. No spiculation or architectural distortion is observed. No evidence of axillary adenopathy. No mammographically suspicious finding. The Volpara volumetric breast density pattern is C. Targeted left breast sonography: The left breast is scanned in the area of pain and tenderness about the 9 o'clock position. Heterogeneous fibroglandular background echotexture is seen. No cyst, mass, or acoustic shadowing is observed.. IMPRESSION: BIRADS/ACR category 2 benign mammographic and sonographic findings.. This patient's Tyrer-Cuzick lifetime breast cancer risk assessment score is 3.4%. This mammogram was interpreted with the aid of an FDA-approved computer-aided detection system. The patient states she had a clinical breast exam in over a year ago. The patient letter being requested is M2 dense. RECOMMENDATION: Repeat screening mammography recommended 1 year (for women over 40). <Electronically signed by Lenny Eaton > 02/23/21 [id number]
== END ==
LOC: M WHC 13:05
PROVIDERS: ATTEND Family Medicine
DX: Z12.31 Encounter for screening mammogram for malignant neoplasm of breast (principal); N64.4 Mastodynia
CPT/HCPCS: 76642; 77066; G0279

== ENCOUNTER → 2021-03-17 | Outpatient (CLI) | payer MEDICARE ==
[2021-03-17 13:31] LABS: HEMATOCRIT 43.6 % (36.0-47.0); HEMOGLOBIN 14.6 g/dl (12.0-15.5); MEAN CORPUSCULAR HEMOGLOBIN 31.7 pg (27.0-33.0); MEAN CORPUSCULAR HGB CONC 33.5 g/dl (32.0-36.5); MEAN CORPUSCULAR VOLUME 94.8 fl (80.0-96.0); PLATELET COUNT, AUTOMATED 200 10^3/uL (150-450); WHITE BLOOD COUNT 7.7 10^3/uL (4.0-10.0)
[2021-03-17 14:01] LABS: ERYTHROCYTE SEDIMENTATION RATE 5 mm/hr (0-30)
[2021-03-17 14:14] LABS: ALT/SGPT 24 U/L (12-78); BILIRUBIN,TOTAL 0.6 MG/DL (0.2-1.0); BLOOD UREA NITROGEN 19 MG/DL (7-18); CALCIUM LEVEL 8.6 MG/DL (8.8-10.2); CARBON DIOXIDE LEVEL 28 MEQ/L (21-32); CHLORIDE LEVEL 107 MEQ/L (98-107); CHOLESTEROL LEVEL 222 MG/DL (<200); CHOLESTEROL RISK RATIO 2.883 (<5); CORTISOL AM 9.5 UG/DL (4.3-22.4); CPK CREATINE PHOSPHOKINASE 70 U/L (26-192); CREATININE FOR GFR 0.88 MG/DL (0.55-1.30); FREE T4 1.01 NG/DL (0.76-1.46); GLOMERULAR FILTRATION RATE > 60.0 (>39); GLUCOSE, FASTING 73 MG/DL (70-100); HDL CHOLESTEROL 77 MG/DL (>40); LDL CHOLESTEROL 130 MG/DL (<100); NON-HDL-C 145 MG/DL; POTASSIUM SERUM 4.1 MEQ/L (3.5-5.1); RHEUMATOID FACTOR QUANT < 10.0 IU/ML (<15.0); SODIUM LEVEL 141 MEQ/L (136-145); TOTAL 25(OH) VITAMIN D 28.8 NG/ML (30.0-100.0); TOTAL PROTEIN 6.6 GM/DL (6.4-8.2); TRIGLYCERIDES LEVEL 77 MG/DL (<150)
== END ==
LOC: M PLALAB 10:15
PROVIDERS: ATTEND Family Medicine
DX: I50.32 Chronic diastolic (congestive) heart failure (principal)

== ENCOUNTER → 2021-05-04 | Outpatient (CLI) | payer MEDICARE ==
[~2021-05-04] MED LIST changes: +ISOVUE-370 76% 100ML VIAL As Ordered ONE
--- NOTE | 2021-05-04 15:23 | REP ---
INDICATION: DYSPNEA. Dyspnea on exertion. COMPARISON: August 02, 2020, December 19, 2018, and January 10, 2015. TECHNIQUE: Helical scanning is acquired following the intravenous injection of 75 mL of Isovue 370. Axial 3 mm slices are re-formatted. Coronal and sagittal MPR and coronal MIP images are provided. 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 Axial CT images show linear fibrotic changes in the lower lobes bilaterally as well as in the lingula and right middle lobe. There are moderate to advanced emphysematous changes throughout the upper lobes bilaterally. There are multiple subcentimeter noncalcified and calcified pulmonary nodules all of which are unchanged from the December 19, 2018 study. No new pulmonary nodule is appreciated. No hilar or mediastinal mass or adenopathy is observed. There is good opacification of the thoracic aorta and the pulmonary arterial tree. No acute vascular abnormality is observed. Ascending aorta measures 3.7 cm in anteroposterior dimension. No pleural or pericardial effusion is seen. No adrenal lesion is observed. There is a cyst in the lower pole region of the left kidney measuring 1.9 cm in greatest diameter. No bony destructive lesion is seen. IMPRESSION: Hyperinflation consistent with COPD emphysematous change. Bibasilar fibrosis and multiple small subcentimeter pulmonary nodules all unchanged from comparison study. No acute cardiopulmonary disease. <Electronically signed by Lenny Eaton > 05/04/21 [id number]
== END ==
LOC: M RAD 14:19
PROVIDERS: ATTEND Family Medicine
DX: J44.9 Chronic obstructive pulmonary disease, unspecified (principal)
CPT/HCPCS: 71260; 87070; 87077; 87102; 87116; 87205; 87206; Q9967

== ENCOUNTER → 2021-05-15 | Outpatient (CLI) | payer MEDICARE ==
[~2021-05-15] MED LIST changes: +ATOR40TA75; -ISOVUE-370 76% 100ML VIAL As Ordered ONE
[2021-05-15 17:57] LABS: BASO % 0.5 % (0.0-1.0); EOS # 0.1 10^3/uL (0.0-0.5); EOS % 0.9 % (0.0-3.0); HEMATOCRIT 46.7 % (36.0-47.0); HEMOGLOBIN 15.5 g/dl (12.0-15.5); LYMPH # 2.9 10^3/uL (1.5-5.0); LYMPH % 33.2 % (24.0-44.0); MEAN CORPUSCULAR HEMOGLOBIN 31.6 pg (27.0-33.0); MEAN CORPUSCULAR HGB CONC 33.2 g/dl (32.0-36.5); MEAN CORPUSCULAR VOLUME 95.1 fl (80.0-96.0); MONO # 0.6 10^3/uL (0.0-0.8); MONO % 7.2 % (2.0-8.0); NEUTROPHILS % 57.9 % (36.0-66.0); PLATELET COUNT, AUTOMATED 224 10^3/uL (150-450); RED BLOOD COUNT 4.91 10^6/uL (4.00-5.40); WHITE BLOOD COUNT 8.7 10^3/uL (4.0-10.0)
[2021-05-15 18:26] LABS: ALT/SGPT 30 U/L (12-78); BILIRUBIN,TOTAL 0.5 MG/DL (0.2-1.0); BLOOD UREA NITROGEN 20 MG/DL (7-18); CALCIUM LEVEL 9.4 MG/DL (8.8-10.2); CARBON DIOXIDE LEVEL 30 MEQ/L (21-32); CHLORIDE LEVEL 107 MEQ/L (98-107); CREATININE FOR GFR 0.88 MG/DL (0.55-1.30); GLOMERULAR FILTRATION RATE > 60.0 (>39); GLUCOSE, FASTING 74 MG/DL (70-100); POTASSIUM SERUM 4.3 MEQ/L (3.5-5.1); SODIUM LEVEL 142 MEQ/L (136-145)
== END ==
LOC: M PLAIMG 15:06
PROVIDERS: ATTEND Student in an Organized Health Care Education/Training Program
DX: R06.00 Dyspnea, unspecified (principal)

== ENCOUNTER → 2021-05-15 | Outpatient (REF) | payer MEDICARE ==
[~2021-05-15] MED LIST changes: -ATOR40TA75
== END ==
LOC: M SFHCPLAZ 15:00
PROVIDERS: ATTEND Family Medicine
DX: Z53.20 Procedure and treatment not carried out because of patient's decision for unspecified reasons (principal)

== ENCOUNTER 2021-09-26 14:32 | Emergency (ER) | payer MEDICARE ==
[~2021-09-26] VITALS: Ht 152.4 cm; Wt 47.2 kg
[2021-09-26] MEDS ORDERED: ATOR40TA75 (14:38)
[2021-09-26 17:40] LABS: BASO % 0.3 % (0.0-1.0); CK-MB VALUE MASS < 1.0 NG/ML (<3.6); CPK CREATINE PHOSPHOKINASE 65 U/L (26-192); EOS # 0.1 10^3/uL (0.0-0.5); EOS % 0.9 % (0.0-3.0); HEMOGLOBIN 13.4 g/dl (12.0-15.5); LYMPH # 2.2 10^3/uL (1.5-5.0); MB/CK RELATIVE INDEX 1.54 (< OR =4); MEAN CORPUSCULAR HEMOGLOBIN 30.9 pg (27.0-33.0); MEAN CORPUSCULAR HGB CONC 32.7 g/dl (32.0-36.5); MEAN CORPUSCULAR VOLUME 94.5 fl (80.0-96.0); MONO # 0.6 10^3/uL (0.0-0.8); MONO % 7.9 % (2.0-8.0); NEUTROPHILS # 5.1 10^3/uL (1.5-8.5); NEUTROPHILS % 63.8 % (36.0-66.0); PLATELET COUNT, AUTOMATED 177 10^3/uL (150-450); RED BLOOD COUNT 4.34 10^6/uL (4.00-5.40)
[2021-09-26 17:47] LABS: ALBUMIN 3.7 GM/DL (3.2-5.2); ALT/SGPT 27 U/L (12-78); BILIRUBIN,DIRECT 0.2 MG/DL (0.0-0.2); BILIRUBIN,TOTAL 0.3 MG/DL (0.2-1.0); BLOOD UREA NITROGEN 22 MG/DL (7-18); CALCIUM LEVEL 8.9 MG/DL (8.8-10.2); CARBON DIOXIDE LEVEL 29 MEQ/L (21-32); CHLORIDE LEVEL 108 MEQ/L (98-107); CREATININE FOR GFR 0.84 MG/DL (0.55-1.30); GLOMERULAR FILTRATION RATE > 60.0 (>39); GLUCOSE, FASTING 104 MG/DL (70-100); LIPASE 73 U/L (73-393); NT-PRO BNP 136 PG/ML (<125); POTASSIUM SERUM 4.3 MEQ/L (3.5-5.1); SODIUM LEVEL 140 MEQ/L (136-145); TOTAL PROTEIN 6.2 GM/DL (6.4-8.2)
[2021-09-26 17:55] LABS: INR 0.84; PROTHROMBIN TIME 11.9 SECONDS (12.7-14.5)
[2021-09-26 17:56] LABS: PARTIAL THROMBOPLASTIN TIME 25.4 SECONDS (25.9-37.0)
[2021-09-26 18:02] LABS: ERYTHROCYTE SEDIMENTATION RATE 8 mm/hr (0-30)
[2021-09-26 18:33] LABS: CK-MB VALUE MASS < 1.0 NG/ML (<3.6); CPK CREATINE PHOSPHOKINASE 66 U/L (26-192); MB/CK RELATIVE INDEX 1.52 (< OR =4)
[2021-09-26] MEDS ORDERED: COMBIVENT RESPIMAT 100-20MCG INHALER 4GM INH ONE (19:00)
[2021-09-26] MEDS ORDERED: methylPREDNISolone 125MG 2ML VIAL IV ONE (19:00)
[2021-09-26] MEDS ORDERED: ISOVUE-370 76% 100ML VIAL As Ordered ONE (19:12)
[2021-09-26 20:45] VITALS: BP 110/57
[2021-09-26] MEDS ORDERED: PRED20TA PO (20:59)
== END 2021-09-26 21:23 | disposition home or self-care (01) ==
LOC: M ED 14:32
DX: J44.1 Chronic obstructive pulmonary disease with (acute) exacerbation (principal); I25.10 Atherosclerotic heart disease of native coronary artery without angina pectoris; Z87.891 Personal history of nicotine dependence; Z79.899 Other long term (current) drug therapy; Z79.82 Long term (current) use of aspirin
CPT/HCPCS: 71045; 71275; 80048; 80076; 82550; 82553; 83690; 83880; 84443; 84484; 85025; 85610; 85652; 85730; 86140; 87040; 87798; 93005; 93041; 94640; 94760; 96374; 99285; J2930; Q9967

== ENCOUNTER → 2021-10-17 | Outpatient (CLI) | payer MEDICARE ==
[~2021-10-17] MED LIST changes: +ATOR40TA75; -DOXY150C PO; +DOXY150C3 PO
[2021-10-17 15:56] LABS: C REACTIVE PROTEIN QUANTITATIV < 0.30 MG/DL (0.00-0.30)
[2021-10-17 16:08] LABS: TOTAL 25(OH) VITAMIN D 28.7 NG/ML (30.0-100.0)
== END ==
LOC: M PLALAB 13:44
PROVIDERS: ATTEND Family Medicine
DX: R79.89 Other specified abnormal findings of blood chemistry (principal); Z79.899 Other long term (current) drug therapy

== ENCOUNTER → 2022-04-19 | Outpatient (CLI) | payer MEDICARE | LOC: M PLAIMG 10:24 | PROVIDERS: ATTEND Student in an Organized Health Care Education/Training Program | DX: R51.9 Headache, unspecified (principal); F32.9 Major depressive disorder, single episode, unspecified; I10 Essential (primary) hypertension; I25.118 Atherosclerotic heart disease of native coronary artery with other forms of angina pectoris; F41.1 Generalized anxiety disorder; J43.9 Emphysema, unspecified ==

== ENCOUNTER → 2022-04-19 | Outpatient (CLI) | payer MEDICARE ==
[2022-04-19 15:41] LABS: ALBUMIN 3.9 GM/DL (3.2-5.2); ALT/SGPT 20 U/L (12-78); BILIRUBIN,TOTAL 0.5 MG/DL (0.2-1.0); BLOOD UREA NITROGEN 18 MG/DL (7-18); CALCIUM LEVEL 8.8 MG/DL (8.8-10.2); CARBON DIOXIDE LEVEL 29 MEQ/L (21-32); CHLORIDE LEVEL 108 MEQ/L (98-107); CHOLESTEROL LEVEL 185 MG/DL (<200); CHOLESTEROL RISK RATIO 2.402 (<5); CREATININE FOR GFR 0.84 MG/DL (0.55-1.30); GLOMERULAR FILTRATION RATE > 60.0 (>39); GLUCOSE, FASTING 84 MG/DL (70-100); HDL CHOLESTEROL 77 MG/DL (>40); LDL CHOLESTEROL 88 MG/DL (<100); NON-HDL-C 108 MG/DL; POTASSIUM SERUM 4.6 MEQ/L (3.5-5.1); SODIUM LEVEL 140 MEQ/L (136-145); TOTAL PROTEIN 6.4 GM/DL (6.4-8.2); TRIGLYCERIDES LEVEL 99 MG/DL (<150)
[2022-04-19 15:48] LABS: HEMATOCRIT 43.7 % (36.0-47.0); HEMOGLOBIN 14.3 g/dl (12.0-15.5); MEAN CORPUSCULAR HEMOGLOBIN 31.6 pg (27.0-33.0); MEAN CORPUSCULAR HGB CONC 32.7 g/dl (32.0-36.5); MEAN CORPUSCULAR VOLUME 96.5 fl (80.0-96.0); PLATELET COUNT, AUTOMATED 197 10^3/uL (150-450); RED BLOOD COUNT 4.53 10^6/uL (4.00-5.40); WHITE BLOOD COUNT 8.1 10^3/uL (4.0-10.0)
== END ==
LOC: M PLALAB 11:03
PROVIDERS: ATTEND Family Medicine
DX: F32.9 Major depressive disorder, single episode, unspecified (principal); I10 Essential (primary) hypertension; I25.118 Atherosclerotic heart disease of native coronary artery with other forms of angina pectoris; F41.1 Generalized anxiety disorder; J43.9 Emphysema, unspecified

== ENCOUNTER → 2022-07-09 | Outpatient (CLI) | payer MEDICARE | LOC: M LAB 11:30 | PROVIDERS: ATTEND Family Medicine | DX: R44.2 Other hallucinations (principal) ==

== ENCOUNTER → 2022-07-09 | Outpatient (CLI) | payer MEDICARE ==
[2022-07-09 12:39] LABS: BASO % 0.5 % (0.0-1.0); EOS # 0.1 10^3/uL (0.0-0.5); EOS % 1.2 % (0.0-3.0); HEMATOCRIT 43.9 % (36.0-47.0); HEMOGLOBIN 14.3 g/dl (12.0-15.5); MEAN CORPUSCULAR HEMOGLOBIN 31.4 pg (27.0-33.0); MEAN CORPUSCULAR HGB CONC 32.6 g/dl (32.0-36.5); MEAN CORPUSCULAR VOLUME 96.5 fl (80.0-96.0); MONO # 0.6 10^3/uL (0.0-0.8); MONO % 9.2 % (2.0-8.0); NEUTROPHILS # 3.7 10^3/uL (1.5-8.5); NEUTROPHILS % 57.8 % (36.0-66.0); PLATELET COUNT, AUTOMATED 201 10^3/uL (150-450); RED BLOOD COUNT 4.55 10^6/uL (4.00-5.40); WHITE BLOOD COUNT 6.4 10^3/uL (4.0-10.0)
[2022-07-09 13:20] LABS: ALKALINE PHOSPHATASE 66 U/L (45-117); ALT/SGPT 26 U/L (12-78); AST/SGOT 18 U/L (7-37); BILIRUBIN,TOTAL 0.4 MG/DL (0.2-1.0); BLOOD UREA NITROGEN 12 MG/DL (7-18); CALCIUM LEVEL 9.1 MG/DL (8.8-10.2); CARBON DIOXIDE LEVEL 27 MEQ/L (21-32); CHLORIDE LEVEL 107 MEQ/L (98-107); CREATININE FOR GFR 0.81 MG/DL (0.55-1.30); GLOMERULAR FILTRATION RATE > 60.0 (>39); GLUCOSE, FASTING 88 MG/DL (70-100); POTASSIUM SERUM 4.5 MEQ/L (3.5-5.1); SODIUM LEVEL 138 MEQ/L (136-145); TOTAL PROTEIN 6.6 GM/DL (6.4-8.2)
== END ==
LOC: M LAB 11:28
PROVIDERS: ATTEND Student in an Organized Health Care Education/Training Program
DX: K55.1 Chronic vascular disorders of intestine (principal)

== ENCOUNTER → 2022-08-23 | Outpatient (CLI) | payer MEDICARE ==
[2022-08-23 14:50] LABS: ALBUMIN 3.7 G/DL (3.2-5.2); BLOOD UREA NITROGEN 15 MG/DL (9-23); CALCIUM LEVEL 8.8 MG/DL (8.3-10.6); CARBON DIOXIDE LEVEL 28 MMOL/L (20-31); CHLORIDE LEVEL 107 MMOL/L (98-107); CREATININE FOR GFR 0.69 MG/DL (0.55-1.30); GLOMERULAR FILTRATION RATE > 60.0 (>39); GLUCOSE, FASTING 85 MG/DL (74-106); PHOSPHORUS LEVEL 2.3 MG/DL (2.4-5.1); POTASSIUM SERUM 4.6 MMOL/L (3.5-5.1); SODIUM LEVEL 142 MMOL/L (136-145)
== END ==
LOC: M PLALAB 11:52
PROVIDERS: ATTEND Family Medicine
DX: N18.31 Chronic kidney disease, stage 3a (principal)

== ENCOUNTER → 2022-09-07 | Outpatient (CLI) | payer MEDICARE | LOC: M PLARAD 09:24 | PROVIDERS: ATTEND Student in an Organized Health Care Education/Training Program | DX: R44.2 Other hallucinations (principal) ==

== ENCOUNTER → 2022-10-15 | Outpatient (CLI) | payer MEDICARE ==
[2022-10-15 15:52] LABS: BASO % 0.6 % (0.0-1.0); EOS # 0.1 10^3/uL (0.0-0.5); EOS % 1.3 % (0.0-3.0); HEMATOCRIT 45.3 % (36.0-47.0); HEMOGLOBIN 14.4 g/dl (12.0-15.5); LYMPH # 1.9 10^3/uL (1.5-5.0); LYMPH % 30.3 % (24.0-44.0); MEAN CORPUSCULAR HEMOGLOBIN 30.6 pg (27.0-33.0); MEAN CORPUSCULAR HGB CONC 31.8 g/dl (32.0-36.5); MEAN CORPUSCULAR VOLUME 96.2 fl (80.0-96.0); MONO # 0.6 10^3/uL (0.0-0.8); MONO % 8.9 % (2.0-8.0); NEUTROPHILS # 3.7 10^3/uL (1.5-8.5); NEUTROPHILS % 58.7 % (36.0-66.0); PLATELET COUNT, AUTOMATED 182 10^3/uL (150-450); RED BLOOD COUNT 4.71 10^6/uL (4.00-5.40); WHITE BLOOD COUNT 6.3 10^3/uL (4.0-10.0)
[2022-10-15 16:03] LABS: ERYTHROCYTE SEDIMENTATION RATE 1 mm/hr (0-30)
== END ==
LOC: M PLALAB 11:54
PROVIDERS: ATTEND Family Medicine
DX: R51.9 Headache, unspecified (principal)

== ENCOUNTER → 2022-10-16 | Outpatient (CLI) | payer MEDICARE ==
[~2022-10-16] MED LIST changes: +ISOVUE-370 76% 100ML VIAL As Ordered ONE
== END ==
LOC: M RAD 12:06
PROVIDERS: ATTEND Internal Medicine Pulmonary Disease
DX: Z87.891 Personal history of nicotine dependence (principal)

== ENCOUNTER → 2022-11-12 | Outpatient (CLI) | payer MEDICARE ==
[~2022-11-12] MED LIST changes: -ISOVUE-370 76% 100ML VIAL As Ordered ONE
== END ==
LOC: M PLAIMG 11:05
PROVIDERS: ATTEND Student in an Organized Health Care Education/Training Program
DX: H92.02 Otalgia, left ear (principal); R59.0 Localized enlarged lymph nodes

== ENCOUNTER → 2022-11-12 | Outpatient (CLI) | payer MEDICARE ==
[2022-11-12 15:05] LABS: BASO % 0.4 % (0.0-1.0); EOS # 0.1 10^3/uL (0.0-0.5); EOS % 0.9 % (0.0-3.0); HEMATOCRIT 44.2 % (36.0-47.0); HEMOGLOBIN 14.9 g/dl (12.0-15.5); LYMPH # 1.5 10^3/uL (1.5-5.0); LYMPH % 19.4 % (24.0-44.0); MEAN CORPUSCULAR HGB CONC 33.7 g/dl (32.0-36.5); MEAN CORPUSCULAR VOLUME 94.8 fl (80.0-96.0); MONO # 0.6 10^3/uL (0.0-0.8); MONO % 7.5 % (2.0-8.0); NEUTROPHILS # 5.4 10^3/uL (1.5-8.5); NEUTROPHILS % 71.5 % (36.0-66.0); PLATELET COUNT, AUTOMATED 203 10^3/uL (150-450); RED BLOOD COUNT 4.66 10^6/uL (4.00-5.40); WHITE BLOOD COUNT 7.6 10^3/uL (4.0-10.0)
[2022-11-12 15:17] LABS: ALBUMIN 3.9 G/DL (3.2-5.2); ALKALINE PHOSPHATASE 65 U/L (46-116); ALT/SGPT 18 U/L (7.0-40); AST/SGOT 19 U/L (<34); BILIRUBIN,TOTAL 0.7 MG/DL (0.3-1.2); BLOOD UREA NITROGEN 13 MG/DL (9-23); CALCIUM LEVEL 8.6 MG/DL (8.3-10.6); CARBON DIOXIDE LEVEL 32 MMOL/L (20-31); CHLORIDE LEVEL 103 MMOL/L (98-107); CREATININE FOR GFR 0.73 MG/DL (0.55-1.30); GLOMERULAR FILTRATION RATE > 60.0 (>39); GLUCOSE, FASTING 76 MG/DL (74-106); POTASSIUM SERUM 4.2 MMOL/L (3.5-5.1); PTH INTACT 68.6 PG/ML (18.5-88.0); SODIUM LEVEL 139 MMOL/L (136-145); TOTAL PROTEIN 6.4 G/DL (5.7-8.2)
== END ==
LOC: M PLALAB 11:30
PROVIDERS: ATTEND Student in an Organized Health Care Education/Training Program
DX: R59.0 Localized enlarged lymph nodes (principal)

== ENCOUNTER → 2022-12-19 | Outpatient (CLI) | payer MEDICARE | LOC: M PLAIMG 10:36 | PROVIDERS: ATTEND Student in an Organized Health Care Education/Training Program | DX: M19.042 Primary osteoarthritis, left hand (principal); S10.8 Superficial injury of other specified parts of neck ==

== ENCOUNTER → 2023-02-07 | Outpatient (CLI) | payer MEDICARE | LOC: M PLAIMG 14:20 | PROVIDERS: ATTEND Student in an Organized Health Care Education/Training Program | DX: M99.03 Segmental and somatic dysfunction of lumbar region (principal) ==

== ENCOUNTER → 2023-02-19 | Outpatient (CLI) | payer MEDICARE | LOC: M PLAIMG 15:22 | PROVIDERS: ATTEND Student in an Organized Health Care Education/Training Program | DX: M16.0 Bilateral primary osteoarthritis of hip (principal); M51.36 Other intervertebral disc degeneration, lumbar region; M51.37 Other intervertebral disc degeneration, lumbosacral region ==

== ENCOUNTER → 2023-04-19 | Outpatient (CLI) | payer MEDICARE ==
[2023-04-19 14:01] LABS: HEMATOCRIT 44.3 % (36.0-47.0); HEMOGLOBIN 14.7 g/dl (12.0-15.5); MEAN CORPUSCULAR HEMOGLOBIN 31.5 pg (27.0-33.0); MEAN CORPUSCULAR HGB CONC 33.2 g/dl (32.0-36.5); MEAN CORPUSCULAR VOLUME 94.9 fl (80.0-96.0); PLATELET COUNT, AUTOMATED 216 10^3/uL (150-450); RED BLOOD COUNT 4.67 10^6/uL (4.00-5.40); WHITE BLOOD COUNT 7.9 10^3/uL (4.0-10.0)
[2023-04-19 14:18] LABS: HEMOGLOBIN A1c 5.4 % (4.0-6.0)
[2023-04-19 14:27] LABS: ALKALINE PHOSPHATASE 142 U/L (46-116); ALT/SGPT 24 U/L (7.0-40); AST/SGOT 18 U/L (<34); BILIRUBIN,TOTAL 0.7 MG/DL (0.3-1.2); BLOOD UREA NITROGEN 18 MG/DL (9-23); CALCIUM LEVEL 9.4 MG/DL (8.3-10.6); CARBON DIOXIDE LEVEL 32 MMOL/L (20-31); CHLORIDE LEVEL 102 MMOL/L (98-107); CHOLESTEROL LEVEL 187 MG/DL (<200); CREATININE FOR GFR 0.94 MG/DL (0.55-1.30); FREE T4 1.29 NG/DL (0.89-1.76); GLOMERULAR FILTRATION RATE > 60.0 (>39); GLUCOSE, FASTING 93 MG/DL (74-106); HDL CHOLESTEROL 81.1 MG/DL (>40); LDL CHOLESTEROL 90.3 MG/DL (<100); NON-HDL-C 105.9 MG/DL; POTASSIUM SERUM 4.9 MMOL/L (3.5-5.1); SODIUM LEVEL 139 MMOL/L (136-145); THYROID STIMULATING HORMONE 3.045 uIU/ML (0.55-4.78); TOTAL PROTEIN 6.6 G/DL (5.7-8.2); TRIGLYCERIDES LEVEL 78 MG/DL (<150)
== END ==
LOC: M PLALAB 09:25
PROVIDERS: ATTEND Student in an Organized Health Care Education/Training Program
DX: Z02.89 Encounter for other administrative examinations (principal); G45.9 Transient cerebral ischemic attack, unspecified; I12.9 Hypertensive chronic kidney disease with stage 1 through stage 4 chronic kidney disease, or unspecified chronic kidney disease; N18.31 Chronic kidney disease, stage 3a; R05.8 Other specified cough; Z13.1 Encounter for screening for diabetes mellitus; Z79.899 Other long term (current) drug therapy

== ENCOUNTER → 2023-04-26 | Outpatient (CLI) | payer MEDICARE | LOC: M WHC 08:10 | PROVIDERS: ATTEND Student in an Organized Health Care Education/Training Program | DX: I10 Essential (primary) hypertension (principal) ==

== ENCOUNTER 2023-05-30 11:48 | Day surgery (SDC) | payer MEDICARE ==
[~2023-05-30] VITALS: Ht 154.9 cm; Wt 37.3 kg
[~2023-05-30 11:48] MED LIST changes: +ALBU8.5H; +ASPI-655 PO; -ATOR40TA75; +ATOR40TA75 PO; +NS 1,000 ML IV ONE; +OMEP40CA5 PO; +SERT50TA29 PO; +SUCR1TAB56 PO
[2023-05-30 14:52] VITALS: TEMP 98.1
[2023-05-30 15:15] VITALS: BP 116/58; O2SAT 18
== END 2023-05-30 15:28 | disposition home or self-care (01) ==
LOC: M OPP 11:48
PROVIDERS: ATTEND Internal Medicine Gastroenterology
DX: K57.30 Diverticulosis of large intestine without perforation or abscess without bleeding (principal); K64.8 Other hemorrhoids; R10.9 Unspecified abdominal pain; R63.4 Abnormal weight loss; F17.200 Nicotine dependence, unspecified, uncomplicated; I20.9 Angina pectoris, unspecified; Z79.02 Long term (current) use of antithrombotics/antiplatelets; Z79.51 Long term (current) use of inhaled steroids; Z79.891 Long term (current) use of opiate analgesic; Z79.899 Other long term (current) drug therapy

== ENCOUNTER → 2023-07-16 | Outpatient (CLI) | payer MEDICARE ==
[~2023-07-16] MED LIST changes: -NS 1,000 ML IV ONE
== END ==
LOC: M RAD 13:57
PROVIDERS: ATTEND Physician Assistant Medical
DX: R11.0 Nausea (principal)
CPT/HCPCS: 78264; A9541

== ENCOUNTER → 2023-07-23 | Outpatient (REF) | payer MEDICARE | LOC: M SFHCPLAZ 15:23 | PROVIDERS: ATTEND Student in an Organized Health Care Education/Training Program | DX: J02.9 Acute pharyngitis, unspecified (principal) ==

== ENCOUNTER → 2023-07-29 | Outpatient (CLI) | payer MEDICARE | LOC: M RAD 07:58 | PROVIDERS: ATTEND Physician Assistant Medical | DX: R10.11 Right upper quadrant pain (principal) | CPT/HCPCS: 76700; 78227; A9537 ==

== ENCOUNTER 2023-08-06 14:04 | Emergency (ER) | payer MEDICARE ==
[~2023-08-06] VITALS: Ht 152.4 cm; Wt 38.2 kg
[2023-08-06 15:12] LABS: BASO % 0.4 % (0.0-1.0); EOS # 0.1 10^3/uL (0.0-0.5); HEMATOCRIT 44.1 % (36.0-47.0); HEMOGLOBIN 14.7 g/dl (12.0-15.5); LYMPH # 2.6 10^3/uL (1.5-5.0); LYMPH % 28.1 % (24.0-44.0); MEAN CORPUSCULAR HEMOGLOBIN 31.6 pg (27.0-33.0); MEAN CORPUSCULAR HGB CONC 33.3 g/dl (32.0-36.5); MEAN CORPUSCULAR VOLUME 94.8 fl (80.0-96.0); MONO # 0.6 10^3/uL (0.0-0.8); MONO % 5.9 % (2.0-8.0); NEUTROPHILS % 64.3 % (36.0-66.0); PLATELET COUNT, AUTOMATED 234 10^3/uL (150-450); RED BLOOD COUNT 4.65 10^6/uL (4.00-5.40); WHITE BLOOD COUNT 9.4 10^3/uL (4.0-10.0)
[2023-08-06 15:23] LABS: INR 1.04; PARTIAL THROMBOPLASTIN TIME 27.6 SECONDS (24.8-34.2); PROTHROMBIN TIME 13.3 SECONDS (12.5-14.5)
[2023-08-06] MEDS ORDERED: NS 500 ML IV ONE (16:35)
[2023-08-06] MEDS: GASTROGRAFIN SOLUTION 30ML PO SCH ×2 (17:14→17:45)
[2023-08-06 18:13] VITALS: TEMP 98.9
[2023-08-06] MEDS ORDERED: ISOVUE-370 76% 100ML VIAL As Ordered ONE (18:23)
[2023-08-06 21:29] VITALS: BP 155/95; O2SAT 96
== END 2023-08-06 21:30 | disposition home or self-care (01) ==
LOC: M ED 14:04
DX: K52.9 Noninfective gastroenteritis and colitis, unspecified (principal); M80.08XA Age-related osteoporosis with current pathological fracture, vertebra(e), initial encounter for fracture; S32.020A Wedge compression fracture of second lumbar vertebra, initial encounter for closed fracture; S32.040A Wedge compression fracture of fourth lumbar vertebra, initial encounter for closed fracture; S22.080A Wedge compression fracture of T11-T12 vertebra, initial encounter for closed fracture; K76.89 Other specified diseases of liver; N28.1 Cyst of kidney, acquired; I10 Essential (primary) hypertension; K21.9 Gastro-esophageal reflux disease without esophagitis; F41.9 Anxiety disorder, unspecified; F17.200 Nicotine dependence, unspecified, uncomplicated; Z79.52 Long term (current) use of systemic steroids; Z79.82 Long term (current) use of aspirin; Z79.811 Long term (current) use of aromatase inhibitors; Z79.899 Other long term (current) drug therapy
CPT/HCPCS: 74177; 80047; 85025; 85610; 85730; 86850; 86900; 86901; 87428; 93005; 96360; 96361; 99284; G0463; Q9963; Q9967

== ENCOUNTER → 2023-08-23 | Outpatient (CLI) | payer MEDICARE | LOC: M CARPUL 09:59 | PROVIDERS: ATTEND Internal Medicine Pulmonary Disease | DX: J44.9 Chronic obstructive pulmonary disease, unspecified (principal); I35.0 Nonrheumatic aortic (valve) stenosis ==

== ENCOUNTER → 2023-09-26 | Outpatient (CLI) | payer MEDICARE ==
[2023-09-26 16:23] LABS: BLOOD UREA NITROGEN 18 MG/DL (9-23); CALCIUM LEVEL 9.2 MG/DL (8.3-10.6); CARBON DIOXIDE LEVEL 32 MMOL/L (20-31); CHLORIDE LEVEL 107 MMOL/L (98-107); CREATININE FOR GFR 0.76 MG/DL (0.55-1.30); GLOMERULAR FILTRATION RATE > 60.0 (>39); GLUCOSE, FASTING 97 MG/DL (74-106); POTASSIUM SERUM 4.5 MMOL/L (3.5-5.1); SODIUM LEVEL 141 MMOL/L (136-145)
== END ==
LOC: M PLALAB 12:23
PROVIDERS: ATTEND Student in an Organized Health Care Education/Training Program
DX: K55.1 Chronic vascular disorders of intestine (principal)

== ENCOUNTER → 2023-09-30 | Outpatient (CLI) | payer MEDICARE ==
[~2023-09-30] MED LIST changes: +ISOVUE-370 76% 100ML VIAL ONE
== END ==
LOC: M PLAIMG 12:03
PROVIDERS: ATTEND Student in an Organized Health Care Education/Training Program
DX: K55.1 Chronic vascular disorders of intestine (principal)
CPT/HCPCS: 74175; Q9967

== ENCOUNTER → 2023-11-29 | Outpatient (CLI) | payer MEDICARE ==
[~2023-11-29] MED LIST changes: -DOXY150C3 PO; +DOXY150C5 PO; -ISOVUE-370 76% 100ML VIAL ONE
[2023-11-29 13:41] LABS: BASO # 0.1 10^3/uL (0.0-0.2); BASO % 0.6 % (0.0-1.0); EOS # 0.1 10^3/uL (0.0-0.5); EOS % 1.5 % (0.0-3.0); HEMATOCRIT 44.5 % (36.0-47.0); HEMOGLOBIN 14.9 g/dl (12.0-15.5); LYMPH # 2.2 10^3/uL (1.5-5.0); LYMPH % 27.4 % (24.0-44.0); MEAN CORPUSCULAR HEMOGLOBIN 32.2 pg (27.0-33.0); MEAN CORPUSCULAR HGB CONC 33.5 g/dl (32.0-36.5); MEAN CORPUSCULAR VOLUME 96.1 fl (80.0-96.0); MONO # 0.5 10^3/uL (0.0-0.8); MONO % 6.7 % (2.0-8.0); NEUTROPHILS % 63.4 % (36.0-66.0); PLATELET COUNT, AUTOMATED 230 10^3/uL (150-450); RED BLOOD COUNT 4.63 10^6/uL (4.00-5.40); WHITE BLOOD COUNT 7.9 10^3/uL (4.0-10.0)
[2023-11-29 13:55] LABS: HEMOGLOBIN A1c 5.7 % (4.0-6.0)
[2023-11-29 14:05] LABS: ALBUMIN 3.8 G/DL (3.2-5.2); ALKALINE PHOSPHATASE 71 U/L (46-116); ALT/SGPT 23 U/L (7.0-40); AST/SGOT 17 U/L (<34); BILIRUBIN,TOTAL 0.4 MG/DL (0.3-1.2); BLOOD UREA NITROGEN 17 MG/DL (9-23); CALCIUM LEVEL 8.6 MG/DL (8.3-10.6); CARBON DIOXIDE LEVEL 31 MMOL/L (20-31); CHLORIDE LEVEL 107 MMOL/L (98-107); CREATININE FOR GFR 0.78 MG/DL (0.55-1.30); GLOMERULAR FILTRATION RATE > 60.0 (>39); GLUCOSE, FASTING 95 MG/DL (74-106); MAGNESIUM LEVEL 1.8 MG/DL (1.8-2.4); POTASSIUM SERUM 3.8 MMOL/L (3.5-5.1); SODIUM LEVEL 141 MMOL/L (136-145)
[2023-11-29 14:07] LABS: FREE T4 1.29 NG/DL (0.89-1.76); THYROID STIMULATING HORMONE 1.304 uIU/ML (0.55-4.78); VITAMIN B12 LEVEL 821 PG/ML (211-911)
== END ==
LOC: M PLALAB 12:22 → M LAB 12:22
PROVIDERS: ATTEND Student in an Organized Health Care Education/Training Program
DX: R20.2 Paresthesia of skin (principal); R63.4 Abnormal weight loss; Z79.899 Other long term (current) drug therapy

== ENCOUNTER → 2024-01-02 | Outpatient (CLI) | payer MEDICARE | LOC: M LAB 09:18 | PROVIDERS: ATTEND Student in an Organized Health Care Education/Training Program | DX: R63.4 Abnormal weight loss (principal); R20.2 Paresthesia of skin ==

== ENCOUNTER 2024-01-29 09:50 | Day surgery (SDC) | payer MEDICARE ==
[~2024-01-29] VITALS: Ht 152.4 cm; Wt 36.7 kg
[~2024-01-29 09:50] MED LIST changes: +FURO40TA2 PO; +PHENYLEPHRINE 10% OPHTH SOL 5ML OS PRN; +PRED5PAK PO
[2024-01-29] MEDS: OFLOXACIN 0.3 % (OCUFLOX) OPTH SOL 5ML OS ONE (10:40)
[2024-01-29] MEDS ORDERED: fentaNYL 100 MCG/2 ML INJECTION As Ordered ONE (10:47)
[2024-01-29] MEDS ORDERED: MIDAZOLAM INJ 2MG/2ML VIAL As Ordered ONE (10:47)
[2024-01-29] MEDS: PHENYLEPHRINE 2.5% OPHTH SOL 2ML OS SCH (10:54)
[2024-01-29] MEDS: ATROPINE SULFATE 1% OPHTH SOLN 2ML BTL OS SCH (10:54)
[2024-01-29] MEDS: LIDOCAINE 3.5 % 1ML OPHTH TOPICAL GEL OU ONE (10:54)
[2024-01-29] MEDS: TROPICAMIDE 1% OPHTH SOLN 15ML OS SCH (10:54)
[2024-01-29] MEDS: BSS IRRIG/VANCO(10MG)/TOBRA(5MG)/EPINEPH(1:1000-0.5CC)500ML BAG-ORONLY As Ordered ONE (11:30)
[2024-01-29] MEDS: CEFUROXIME 1MG/0.1ML INTRACAMERAL INJ As Ordered ONE (11:30)
[2024-01-29] MEDS: LIDOCAINE 1% SDV 5ML VIAL As Ordered ONE (11:30)
[2024-01-29 11:40] VITALS: BP 112/68; TEMP 97.2; O2SAT 95
== END 2024-01-29 12:01 | disposition home or self-care (01) ==
LOC: M SDC 09:50
PROVIDERS: ATTEND Ophthalmology
DX: H25.12 Age-related nuclear cataract, left eye (principal)
CPT/HCPCS: 66984; J0697; J2250; J3010; V2632

== ENCOUNTER 2024-02-05 07:43 | Day surgery (SDC) | payer MEDICARE ==
[~2024-02-05] VITALS: Ht 152.4 cm; Wt 37.5 kg
[~2024-02-05 07:43] MED LIST changes: +PHENYLEPHRINE 10% OPHTH SOL 5ML OD PRN; -PHENYLEPHRINE 10% OPHTH SOL 5ML OS PRN
[2024-02-05] MEDS: OFLOXACIN 0.3 % (OCUFLOX) OPTH SOL 5ML OD ONE (08:11)
[2024-02-05] MEDS: TROPICAMIDE 1% OPHTH SOLN 15ML OD SCH (08:11)
[2024-02-05] MEDS: ATROPINE SULFATE 1% OPHTH SOLN 2ML BTL OD SCH (08:11)
[2024-02-05] MEDS: LIDOCAINE 3.5 % 1ML OPHTH TOPICAL GEL OU ONE (08:12)
[2024-02-05] MEDS: PHENYLEPHRINE 2.5% OPHTH SOL 2ML OD SCH (08:12)
[2024-02-05] MEDS ORDERED: MIDAZOLAM INJ 2MG/2ML VIAL As Ordered ONE (09:13)
[2024-02-05] MEDS ORDERED: fentaNYL 100 MCG/2 ML INJECTION As Ordered ONE (09:13)
[2024-02-05] MEDS: BSS IRRIG/VANCO(10MG)/TOBRA(5MG)/EPINEPH(1:1000-0.5CC)500ML BAG-ORONLY As Ordered ONE (09:15)
[2024-02-05] MEDS: CEFUROXIME 1MG/0.1ML INTRACAMERAL INJ As Ordered ONE (09:15)
[2024-02-05] MEDS: LIDOCAINE 1% SDV 5ML VIAL As Ordered ONE (09:15)
[2024-02-05 09:21] VITALS: BP 117/79; TEMP 97.8; O2SAT 97
== END 2024-02-05 09:35 | disposition home or self-care (01) ==
LOC: M SDC 07:43
PROVIDERS: ATTEND Ophthalmology
DX: H25.11 Age-related nuclear cataract, right eye (principal); I20.9 Angina pectoris, unspecified; R07.9 Chest pain, unspecified; F17.210 Nicotine dependence, cigarettes, uncomplicated; Z79.899 Other long term (current) drug therapy; Z98.42 Cataract extraction status, left eye
CPT/HCPCS: 66984; J0697; J2250; J3010; V2632

== ENCOUNTER → 2024-03-02 | Outpatient (CLI) | payer MEDICARE ==
[~2024-03-02] MED LIST changes: -PHENYLEPHRINE 10% OPHTH SOL 5ML OD PRN
== END ==
LOC: M PLALAB 08:37
PROVIDERS: ATTEND Student in an Organized Health Care Education/Training Program
DX: E27.1 Primary adrenocortical insufficiency (principal)

== ENCOUNTER → 2024-04-16 | Outpatient (CLI) | payer MEDICARE | LOC: M RAD 12:25 | PROVIDERS: ATTEND Internal Medicine Pulmonary Disease | DX: Z87.891 Personal history of nicotine dependence (principal) ==

== ENCOUNTER → 2024-06-17 | Outpatient (CLI) | payer MEDICARE ==
[~2024-06-17] MED LIST changes: +GABA-1172 PO; -GABA-282 PO
[2024-06-17 18:37] LABS: HEMATOCRIT 41.2 % (36.0-47.0); MEAN CORPUSCULAR HEMOGLOBIN 32.7 pg (27.0-33.0); MEAN CORPUSCULAR VOLUME 96.3 fl (80.0-96.0); PLATELET COUNT, AUTOMATED 206 10^3/uL (150-450); RED BLOOD COUNT 4.28 10^6/uL (4.00-5.40); WHITE BLOOD COUNT 8.7 10^3/uL (4.0-10.0)
[2024-06-17 18:52] LABS: ERYTHROCYTE SEDIMENTATION RATE 4 mm/hr (0-30)
== END ==
LOC: M PLALAB 14:18
PROVIDERS: ATTEND Family Medicine
DX: M79.621 Pain in right upper arm (principal)

== ENCOUNTER → 2024-09-11 | Outpatient (CLI) | payer OTHER, MEDICAID ==
[2024-09-11 18:27] LABS: APPEARANCE, URINE HAZY (CLEAR); BACTERIA, URINE AUTO NEGATIVE (NEGATIVE); BILIRUBIN, URINE AUTO NEGATIVE (NEGATIVE); BLOOD, URINE BLOOD NEGATIVE (NEGATIVE); CALCIUM OXALATE CRYSTALS MODERATE; COLOR, URINE AMBER (YELLOW); GLUCOSE, URINE (UA) AUTO NEGATIVE (NEGATIVE); KETONE, URINE AUTO NEGATIVE (NEGATIVE); LEUKOCYTE ESTERASE, URINE AUTO NEGATIVE (NEGATIVE); MUCUS, URINE SMALL (NEGATIVE); NITRITE, URINE AUTO NEGATIVE (NEGATIVE); PROTEIN, URINE AUTO 1+ mg/dL (NEGATIVE); RBC, URINE AUTO 3 /HPF (0-3); SPECIFIC GRAVITY URINE AUTO 1.019 (1.002-1.035); SQUAMOUS EPITHELIAL CELL UR AU 0 /HPF (0-6); UROBILINOGEN, URINE AUTO 0.2 mg/dL (0.0-2.0); WBC, URINE AUTO 2 /HPF (0-3)
[2024-09-11 18:33] LABS: BASO % 0.4 % (0.0-1.0); EOS % 0.4 % (0.0-3.0); HEMOGLOBIN 15.3 g/dl (12.0-15.5); LYMPH # 2.7 10^3/uL (1.5-5.0); LYMPH % 28.8 % (24.0-44.0); MEAN CORPUSCULAR HEMOGLOBIN 32.1 pg (27.0-33.0); MEAN CORPUSCULAR HGB CONC 33.3 g/dl (32.0-36.5); MEAN CORPUSCULAR VOLUME 96.4 fl (80.0-96.0); MONO # 0.7 10^3/uL (0.0-0.8); MONO % 7.4 % (2.0-8.0); NEUTROPHILS # 5.8 10^3/uL (1.5-8.5); NEUTROPHILS % 62.7 % (36.0-66.0); PLATELET COUNT, AUTOMATED 242 10^3/uL (150-450); RED BLOOD COUNT 4.77 10^6/uL (4.00-5.40); WHITE BLOOD COUNT 9.2 10^3/uL (4.0-10.0)
[2024-09-11 18:46] LABS: ERYTHROCYTE SEDIMENTATION RATE 5 mm/hr (0-30)
[2024-09-11 18:57] LABS: ALBUMIN 4.2 G/DL (3.2-5.2); ALKALINE PHOSPHATASE 133 U/L (35-104); ALT/SGPT 23 U/L (7.0-40); AST/SGOT 20 U/L (<34); BILIRUBIN,TOTAL 0.6 MG/DL (0.3-1.2); BLOOD UREA NITROGEN 16 MG/DL (9-23); C REACTIVE PROTEIN QUANTITATIV < 0.50 MG/DL (<1.0); CALCIUM LEVEL 9.5 MG/DL (8.3-10.6); CARBON DIOXIDE LEVEL 30 MMOL/L (20-31); CHLORIDE LEVEL 105 MMOL/L (98-107); GLOMERULAR FILTRATION RATE > 60.0 (>39); GLUCOSE, FASTING 85 MG/DL (74-106); POTASSIUM SERUM 4.8 MMOL/L (3.5-5.1); SODIUM LEVEL 144 MMOL/L (136-145); TOTAL PROTEIN 6.9 G/DL (5.7-8.2)
== END ==
LOC: M PLALAB 15:54
PROVIDERS: ATTEND Student in an Organized Health Care Education/Training Program
DX: R51.9 Headache, unspecified (principal); Z79.899 Other long term (current) drug therapy

== ENCOUNTER → 2024-10-06 | Outpatient (CLI) | payer OTHER, MEDICAID | LOC: M PLAIMG 12:30 | PROVIDERS: ATTEND Student in an Organized Health Care Education/Training Program | DX: R51.9 Headache, unspecified (principal) ==

== ENCOUNTER → 2024-12-03 | Outpatient (REF) | payer OTHER, MEDICAID | LOC: M SFHCPLAZ 14:58 | PROVIDERS: ATTEND Family Medicine | DX: Z53.21 Procedure and treatment not carried out due to patient leaving prior to being seen by health care provider (principal) ==

== ENCOUNTER → 2024-12-18 | Outpatient (CLI) | payer OTHER, MEDICAID | LOC: M PLALAB 14:50 | PROVIDERS: ATTEND Family Medicine | DX: R51.9 Headache, unspecified (principal) ==

== ENCOUNTER → 2025-03-03 | Outpatient (CLI) | payer OTHER, MEDICAID ==
[~2025-03-03] MED LIST changes: +PROHANCE 279.3MG/ML 5ML VIAL ONE
== END ==
LOC: M PLAIMG 14:52
DX: G44.059 Short lasting unilateral neuralgiform headache with conjunctival injection and tearing (SUNCT), not intractable (principal)
CPT/HCPCS: 70553; A9576

== ENCOUNTER → 2025-03-23 | Outpatient (CLI) | payer OTHER, MEDICAID ==
[~2025-03-23] MED LIST changes: -PROHANCE 279.3MG/ML 5ML VIAL ONE
[2025-03-23 17:24] LABS: PLATELET COUNT, AUTOMATED 223 10^3/uL (150-450)
[2025-03-23 17:46] LABS: IRON (FE) 72.0 UG/DL (50-170); PERCENT SATURATION 19.7 % (13.2-45.0)
== END ==
LOC: M PLALAB 14:33
PROVIDERS: ATTEND Family Medicine
DX: D50.9 Iron deficiency anemia, unspecified (principal); Z83.49 Family history of other endocrine, nutritional and metabolic diseases

== ENCOUNTER → 2025-04-22 | Outpatient (CLI) | payer OTHER, MEDICAID ==
[~2025-04-22] MED LIST changes: -ASPI-655 PO; +ASPI-737 PO
== END ==
LOC: M RAD 08:10
PROVIDERS: ATTEND Family Medicine
DX: R10.11 Right upper quadrant pain (principal); K82.4 Cholesterolosis of gallbladder; K76.89 Other specified diseases of liver; R93.89 Abnormal findings on diagnostic imaging of other specified body structures

== ENCOUNTER → 2025-04-23 | Outpatient (REF) | payer OTHER, MEDICAID | LOC: M SFHCPLAZ 10:56 | PROVIDERS: ATTEND Family Medicine | DX: Z53.9 Procedure and treatment not carried out, unspecified reason (principal) ==

== ENCOUNTER → 2025-04-29 | Outpatient (CLI) | payer OTHER, MEDICAID ==
[2025-04-29 14:33] LABS: ESTIMATED AVERAGE GLUCOSE 114.0 MG/DL (60-110)
[2025-05-02 10:27] LABS: HSV SOURCE Serum; HSV-1 DNA Not Detected (Not Detected); HSV-2 DNA Not Detected (Not Detected)
[2025-05-03 14:52] LABS: HERPES ZOSTER, VARICELLA IgG 7.02 S/CO (>=1.00)
== END ==
LOC: M PLALAB 10:35
PROVIDERS: ATTEND Family Medicine
DX: K86.1 Other chronic pancreatitis (principal); G44.059 Short lasting unilateral neuralgiform headache with conjunctival injection and tearing (SUNCT), not intractable

== ENCOUNTER → 2025-05-07 | Outpatient (CLI) | payer OTHER, MEDICAID | LOC: M RAD 07:58 | PROVIDERS: ATTEND Family Medicine | DX: R10.11 Right upper quadrant pain (principal) | CPT/HCPCS: 78227; A9537 ==

== ENCOUNTER → 2025-06-23 | Outpatient (REF) | payer OTHER, MEDICAID ==
[2025-06-23 19:33] LABS: APPEARANCE, URINE HAZY (CLEAR); BACTERIA, URINE AUTO 1+ (NEGATIVE); BILIRUBIN, URINE AUTO NEGATIVE (NEGATIVE); BLOOD, URINE BLOOD 1+ (NEGATIVE); GLUCOSE, URINE (UA) AUTO NEGATIVE (NEGATIVE); KETONE, URINE AUTO NEGATIVE (NEGATIVE); LEUKOCYTE ESTERASE, URINE AUTO 2+ (NEGATIVE); MUCUS, URINE SMALL (NEGATIVE); NITRITE, URINE AUTO NEGATIVE (NEGATIVE); PROTEIN, URINE AUTO 1+ mg/dL (NEGATIVE); RBC, URINE AUTO 12 /HPF (0-3); SPECIFIC GRAVITY URINE AUTO 1.016 (1.002-1.035); SQUAMOUS EPITHELIAL CELL UR AU 2 /HPF (0-6); UROBILINOGEN, URINE AUTO 0.2 mg/dL (0.0-2.0); WBC, URINE AUTO 80 /HPF (0-3)
== END ==
LOC: M LAB REF 17:19
PROVIDERS: ATTEND Physician Assistant
DX: N39.0 Urinary tract infection, site not specified (principal)